=== PATIENT | male | born 1930 | race Caucasian/White ===

== ENCOUNTER → 2016-07-30 | Outpatient (CLI) | payer MEDICARE, OTHER ==
[~2016-07-30] MED LIST: ADVIN25/60 INH; ADVIN25050 INH; ASPI81TA28 PO; ATOR-22 PO; ATOR-24 PO; CALCTAB5 PO; METO25TA3 PO; MULT-506 PO; MULTCAP7 PO; VNTHFA/IN INH; ared PO
--- NOTE | 2016-07-30 14:24 | DIAGNOSTIC IMAGING REPORT ---
BONE SCAN WHOLE BODY CLINICAL HISTORY: Prostate cancer. COMPARISON STUDY: Bone scan May 23, 2013. TECHNIQUE: 26.1 mCi of technetium M MDP was injected IV at 10:25 AM on July 30, 2016. Whole body imaging was performed in the anterior and posterior projections 3 hours following an injection of radiotracer. FINDINGS: Expected soft tissue and renal uptake is present. Marked uptake adjacent to the right shoulder is unchanged and likely degenerative. Uptake within the right midfoot is slightly increased. This is likely degenerative. There is mild curvature of the thoracolumbar spine. There is mild to moderate multifocal uptake within the lower thoracic and lumbar spine. The degree of uptake is slightly increased since prior exam. No abnormal uptake is identified within the pelvis. IMPRESSION: 1. No convincing evidence for skeletal metastatic disease. 2. Mild to moderate multifocal uptake within the lower thoracic and lumbar spine which has slightly increased in degree since prior exam of May 23, 2013. However, a degenerative, postsurgical or traumatic etiology is favored. The appearance is not suggestive of metastatic disease. 3. Uptake adjacent to the right shoulder and right midfoot which is degenerative. Electronically signed by: Sreekanth Spear M.D. 07/30/2016 2:22 PM Dictated Date/Time: 07/30/2016 2:12 PM
== END | disposition home or self-care (01) ==
LOC: C.NUCL 10:08
PROVIDERS: ATTEND Urology
DX: C61 Malignant neoplasm of prostate (principal)

== ENCOUNTER → 2016-09-05 | Outpatient (CLI) | payer MEDICARE ==
[~2016-09-05] MED LIST changes: -ATOR-22 PO
--- NOTE | 2016-09-05 17:00 | DIAGNOSTIC IMAGING REPORT ---
CHEST 2 VIEWS ROUTINE CLINICAL HISTORY: R53.1 [id number] dyspnea COMPARISON STUDY: 09/27/2015 FINDINGS: Small parenchymal infiltrate left base with superimposed chronic atelectatic change. Lungs otherwise are clear. IMPRESSION: Small parenchymal infiltrate left base superimposed upon chronic atelectatic change Electronically signed by: Abraham Tyler M.D. 09/05/2016 4:58 PM Dictated Date/Time: 09/05/2016 4:58 PM
== END | disposition home or self-care (01) ==
LOC: C.RAD1850 16:47
PROVIDERS: ATTEND Internal Medicine Infectious Disease
DX: R53.1 Weakness (principal)

== ENCOUNTER → 2016-09-12 | Outpatient (CLI) | payer MEDICARE ==
[2016-09-12 17:33] LABS: BASO % 0.1 %; BASO ABS # 0.01 K/uL (0-0.2); COMPLETE YES; IG% 0.3 %; LYMPH % 13.6 %; LYMPH ABS # 1.17 K/uL (1.2-3.4); MEAN CELL VOLUME 88.1 fL (80-100); MEAN CORPUSCULAR HEMOGLOBIN 30.6 pg (25-34); MEAN CORPUSCULAR HGB CONC 34.7 g/dl (32-36); MEAN PLATELET VOLUME 9.1 fL (7.4-10.4); MONO % 12.7 %; NEUT % 72.3 %; PLATELET COUNT 338 K/uL (130-400); RED BLOOD COUNT 3.86 M/uL (4.7-6.1)
[2016-09-12 17:58] LABS: BLOOD UREA NITROGEN 18 mg/dl (7-18); BUN/CREATININE RATIO 18.2 (10-20); CALCIUM 8.9 mg/dl (8.5-10.1); CARBON DIOXIDE 28 mmol/L (21-32); CHLORIDE 93 mmol/L (98-107); GLUCOSE 92 mg/dl (70-99); POTASSIUM 3.7 mmol/L (3.5-5.1); SODIUM 130 mmol/L (136-145)
== END | disposition home or self-care (01) ==
LOC: C.LAB1850 16:24
PROVIDERS: ATTEND Internal Medicine Infectious Disease
DX: C61 Malignant neoplasm of prostate (principal); J18.1 Lobar pneumonia, unspecified organism

== ENCOUNTER 2017-02-14 11:21 | Emergency (ER) | payer MEDICARE ==
[~2017-02-14 11:21] MED LIST changes: -ADVIN25/60 INH; -MULTCAP7 PO
[2017-02-14 11:28] VITALS: TEMP 36.4
[2017-02-14] MEDS ORDERED: ADVIN25/60 INH (11:43)
[2017-02-14] MEDS ORDERED: MULTCAP7 PO (11:43)
[2017-02-14] MEDS ORDERED: OPTIRAY 320 IV PRN (12:15)
[2017-02-14 12:42] LABS: ISTAT CREATININE 0.9 mg/dl (0.6-1.3); ISTAT HEMOGLOBIN 12.2 g/dl (14.0-18.0); ISTAT IONIZED CALCIUM 1.15 mmol/l (1.12-1.32)
--- NOTE | 2017-02-14 13:24 | DIAGNOSTIC IMAGING REPORT ---
RIGHT SHOULDER MIN 2 VIEWS ROUTINE CLINICAL HISTORY: Right shoulder pain following fall. COMPARISON: None FINDINGS: Note is made of an acute displaced fracture of the sternal end of the right clavicle which extends to the sternoclavicular joint. There is also a mildly displaced acute fracture of the acromial end of the clavicle. Severe arthritis of the right shoulder is noted with elevation of the humeral head indicative of a chronic rotator cuff tear. There is no proximal right humeral fracture. There are fractures of the right first, third and fourth ribs. IMPRESSION: 1. Acute displaced fracture of the sternal end of the right clavicle and an additional mildly displaced acute fracture of the acromial aspect of the right clavicle. 2. Acute fractures of the right first, third and fourth ribs. 3. Severe osteoarthritis of the right shoulder with elevation of the humeral head which suggests a chronic rotator cuff tear. Electronically signed by: Sreekanth Spear M.D. 02/14/2017 1:22 PM Dictated Date/Time: 02/14/2017 1:17 PM
--- NOTE | 2017-02-14 13:25 | DIAGNOSTIC IMAGING REPORT ---
CT OF THE HEAD WITHOUT CONTRAST CLINICAL HISTORY: TRAUMA COMPARISON STUDY: No previous studies for comparison. CT DOSE: 1296.66 mGy.cm TECHNIQUE: Helical axial images of the head were obtained without IV contrast. Automated exposure control was utilized for the study. A dose lowering technique was utilized adhering to the principles of ALARA. FINDINGS: No acute intracranial hemorrhage, midline shift or mass effect is present. Ventricular system is unremarkable for age. The basilar cisterns are patent. There are no extra-axial collections. Moderate white matter hypodensity suggests small vessel disease. There is a small right scalp contusion. There is no calvarial fracture. IMPRESSION: 1. No acute intracranial findings. 2. Small right scalp contusion. No calvarial fracture. Electronically signed by: Sreekanth Spear M.D. 02/14/2017 1:24 PM Dictated Date/Time: 02/14/2017 1:22 PM
--- NOTE | 2017-02-14 13:32 | DIAGNOSTIC IMAGING REPORT ---
CT OF THE CERVICAL SPINE WITHOUT CONTRAST CLINICAL HISTORY: TRAUMA COMPARISON STUDY: No previous studies for comparison. TECHNIQUE: Helical axial images of the cervical spine were obtained without IV contrast. Sagittal and coronal reconstructions were viewed. A dose lowering technique was utilized adhering to the principles of ALARA. FINDINGS: Craniocervical junction is intact. There is slight reversal of the normal cervical lordosis. There is an acute mildly displaced fracture of the right transverse process of C7. There is severe multilevel disc space narrowing and osteophytosis of the cervical spine. There is moderate multilevel facet arthrosis. A fracture of the posterior right first rib is noted. IMPRESSION: 1. Acute mildly displaced fracture of the right transverse process of C7. 2. Acute minimally displaced fracture of the posterior right first rib. Electronically signed by: Sreekanth Spear M.D. 02/14/2017 1:30 PM Dictated Date/Time: 02/14/2017 1:24 PM
--- NOTE | 2017-02-14 13:42 | DIAGNOSTIC IMAGING REPORT ---
CT OF THE CHEST WITH IV CONTRAST CLINICAL HISTORY: Right chest trauma. COMPARISON STUDY: Chest CT August 25, 2013. TECHNIQUE: Following IV administration of 93 mL of Optiray-320, helical axial images of the chest were obtained. Sagittal and coronal reconstructions were viewed as well as maximal intensity projections on an independent 3-D workstation. A dose lowering technique was utilized adhering to the principles of ALARA. FINDINGS: There is no evidence of traumatic injury to the thoracic aorta. There are median sternotomy wires. There is extensive coronary artery calcification. The heart is mildly enlarged. Note is made of a comminuted, displaced fracture of the sternal aspect of the right clavicle with adjacent hemorrhage. There is also a mildly displaced acute fracture of the acromial aspect of the right clavicle. There are acute nondisplaced fractures of the posterior right first rib as well as the lateral right third, fourth and fifth ribs. There is no pneumothorax. There is no pleural effusion. Groundglass opacities within the lungs favor atelectasis. A small nodular density along the fissure within the right middle lobe is unchanged since prior exam of August 25, 2013. This is likely benign. There are old left-sided rib fractures. Several left renal cysts are incidentally noted. IMPRESSION: 1. Acute moderately displaced comminuted fracture of the sternal end of the right clavicle which extends to the sternoclavicular joint. Small adjacent hematoma which extends into the right pectoralis muscle. Acute mildly displaced fracture of the acromial aspect of the right clavicle. 2. Acute nondisplaced fractures of the right first, second, third, fourth and fifth ribs. No pneumothorax. 3. Groundglass opacities within the lungs which favor atelectasis. Electronically signed by: Sreekanth Spear M.D. 02/14/2017 1:41 PM Dictated Date/Time: 02/14/2017 1:31 PM
--- NOTE | 2017-02-14 15:25 | EMERGENCY ROOM VISIT NOTE ---
History First contact with patient: 11:38 Chief Complaint: FALL Stated Complaint: FALL History of Present Illness Patient is an 86-year-old white male who emergency department accompanied by his for evaluation of injuries that he sustained yesterday evening when he accidentally fell getting out of the back of his pickup truck. He reports he was standing in the bed of the truck throwing out bags of grass. He was coming down from the bed, when he lost his balance and fell landing primarily on the right side. He did strike his head, and his reports very brief loss of consciousness. There was bleeding from a right parietal scalp injury that was fairly brisk initially, but gradually was controlled with pressure. He laid on the ground for roughly 20 minutes before he was able to get up and get back into the house. His wanted to call the ambulance, but he declined. He got himself cleaned up. He used some acetaminophen for generalized aches and pains before going to bed. He noted primarily right shoulder, clavicle and some rib discomfort. He has a history of right shoulder problems, but states that he has not been able to move the right shoulder normally since the fall. He also complains of pain, swelling and bruising in the anterior right chest and clavicular region. His did apply antibiotic ointment to the scalp wound, but they did not wash it in the shower because they did not want the bleeding to return. He reports a fairly severe headache this morning that was alleviated with ibuprofen. He feels a little dizzy, lightheaded and off balance. He denies any posterior neck pain. He has some pain in his right chest with deep breathing. He denies any palpitations. No abdominal pain, nausea or vomiting. He denies any back or flank pain. His denies noticing any confusion, facial droop, slurring of speech or repetitive questioning. Review of Systems Review of systems as per HPI. All other systems reviewed were negative. 10 systems reviewed. Past Medical/Surgical History Medical Problems: (1) Asthma, Unspecified (2) Atrial Fibrillation (3) Coronary Atherosclerosis Of [place] Coronary Vessel (4) Emphysema, Unspecified (5) Hyperlipidemia Nec/Nos (6) Hypertension (7) Malignant Neoplasm Of Prostate (8) Mitral/Aortic Stenosis Surgical Problems: (1) Aortocoronary Bypass (2) H/O lumbosacral spine surgery (3) S/P appendectomy (4) S/P CABG x 3 (5) S/P cataract extraction (6) S/P tonsillectomy Electronic medical records are reviewed and summarized as above/below. See Problem List. Social History Smoking Status: Former Smoker Marital Status: Housing Status: lives with significant other Occupation Status: retired Current/Historical Medications Scheduled Aspirin (Aspirin Ec), 81 MG PO DAILY Atorvastatin (Lipitor), 1 TAB PO DAILY Fluticasone Prop/Salmeterol (Advair Diskus 250/50 60 Dose), 1 PUFF INH BID Metoprolol Succ (Toprol Xl) (Toprol-Xl), 25 MG PO DAILY Multiple Vitamins W/ Minerals (Eye Vitamins), 1 CAP PO DAILY Multivitamin (Multivitamin), 1 TAB PO DAILY Scheduled PRN Albuterol Hfa (Ventolin Hfa), 2-4 PUFFS INH Q6H PRN for Shortness of Breath Physical Exam Vital Signs Date Time Temp Pulse Resp B/P (MAP) Pulse Ox O2 Delivery O2 Flow Rate FiO2 02/14/17 15:17 60 18 133/67 95 Room Air 02/14/17 13:14 60 18 130/67 96 Room Air 02/14/17 11:28 36.4 67 20 138/63 95 Room Air Physical Exam GENERAL: Patient is a pleasant, mildly uncomfortable appearing 86-year-old white male who is awake and alert and laying semi-upright on the gurney in no acute stress. Vital signs are stable. HEENT: Head -right parietal scalp laceration, no surrounding ecchymosis or step- off deformity. Pupils are post surgically pinpoint, round and minimally reactive to light. Extraocular eye muscles are intact and sclera are anicteric. Ears - bilaterally patent canals with no evidence of hemotympanum. Nose - moist nasal mucosa without evidence of trauma or discharge. Mouth - moist buccal mucosa with no trauma to the teeth or signs of malocclusion. Neck: The neck is supple and there is no pain to palpation over the posterior cervical spine and no obvious step-offs or deformities. There is no JVD or tracheal deviation. Chest: Well-healed sternotomy surgical incision. Patient has marked ecchymosis and swelling noted in the right clavicular region extending to the sternum and in the upper right chest to the nipple line. The clavicle is deformed on inspection, tender to palpation, as is the upper chest wall. There is no obvious crepitus or paradoxical chest rise. Heart: Regular rate, and regular rhythm. Harsh systolic ejection murmur noted. Lungs: Breath sounds equal and clear to auscultation without wheezes, rales, or rhonchi heard. Abdomen: Soft, completely nontender, nondistended, with good bowel sounds. There is no sign of trauma such as contusions, abrasions or penetrations. There are no palpable pulsatile masses or hepatosplenomegaly. There is no guarding, rigidity, or rebound noted. Pelvis: Stable to rock and compression. Extremities: Skin tear noted to the posterior aspect of the right shoulder. Proximal humerus is tender to palpation. Passive internal and external rotation are full. Patient cannot actively flex or abduct the shoulder greater than 90. He has a skin tear noted to the left forearm. No other obvious trauma, deformities, contusions, or edema. There are easily palpable peripheral pulses. Neuro: The patient is awake and alert and easily able to follow commands. Muscle strength is 5 out of 5 in all 4 extremities. Otherwise, neuro exam is unremarkable. Back: The entire thoracic, lumbar, and sacral spine were palpated. No discomfort over the thoracic spine and lumbar spine. There are no obvious step- offs or deformities noted. There are no obvious signs of trauma such as contusions abrasions penetrations noted to the back. Medical Decision & Procedures ER Provider Diagnostic Interpretation: RIGHT SHOULDER MIN 2 VIEWS ROUTINE CLINICAL HISTORY: Right shoulder pain following fall. COMPARISON: None FINDINGS: Note is made of an acute displaced fracture of the sternal end of the right clavicle which extends to the sternoclavicular joint. There is also a mildly displaced acute fracture of the acromial end of the clavicle. Severe arthritis of the right shoulder is noted with elevation of the humeral head indicative of a chronic rotator cuff tear. There is no proximal right humeral fracture. There are fractures of the right first, third and fourth ribs. IMPRESSION: 1. Acute displaced fracture of the sternal end of the right clavicle and an additional mildly displaced acute fracture of the acromial aspect of the right clavicle. 2. Acute fractures of the right first, third and fourth ribs. 3. Severe osteoarthritis of the right shoulder with elevation of the humeral head which suggests a chronic rotator cuff tear. CT OF THE HEAD WITHOUT CONTRAST CLINICAL HISTORY: TRAUMA COMPARISON STUDY: No previous studies for comparison. CT DOSE: 1296.66 mGy.cm TECHNIQUE: Helical axial images of the head were obtained without IV contrast. Automated exposure control was utilized for the study. A dose lowering technique was utilized adhering to the principles of ALARA. FINDINGS: No acute intracranial hemorrhage, midline shift or mass effect is present. Ventricular system is unremarkable for age. The basilar cisterns are patent. There are no extra-axial collections. Moderate white matter hypodensity suggests small vessel disease. There is a small right scalp contusion. There is no calvarial fracture. IMPRESSION: 1. No acute intracranial findings. 2. Small right scalp contusion. No calvarial fracture. CT OF THE CHEST WITH IV CONTRAST CLINICAL HISTORY: Right chest trauma. COMPARISON STUDY: Chest CT August 25, 2013. TECHNIQUE: Following IV administration of 93 mL of Optiray-320, helical axial images of the chest were obtained. Sagittal and coronal reconstructions were viewed as well as maximal intensity projections on an independent 3-D workstation. A dose lowering technique was utilized adhering to the principles of ALARA. FINDINGS: There is no evidence of traumatic injury to the thoracic aorta. There are median sternotomy wires. There is extensive coronary artery calcification. The heart is mildly enlarged. Note is made of a comminuted, displaced fracture of the sternal aspect of the right clavicle with adjacent hemorrhage. There is also a mildly displaced acute fracture of the acromial aspect of the right clavicle. There are acute nondisplaced fractures of the posterior right first rib as well as the lateral right third, fourth and fifth ribs. There is no pneumothorax. There is no pleural effusion. Groundglass opacities within the lungs favor atelectasis. A small nodular density along the fissure within the right middle lobe is unchanged since prior exam of August 25, 2013. This is likely benign. There are old left-sided rib fractures. Several left renal cysts are incidentally noted. IMPRESSION: 1. Acute moderately displaced comminuted fracture of the sternal end of the right clavicle which extends to the sternoclavicular joint. Small adjacent hematoma which extends into the right pectoralis muscle. Acute mildly displaced fracture of the acromial aspect of the right clavicle. 2. Acute nondisplaced fractures of the right first, second, third, fourth and fifth ribs. No pneumothorax. 3. Groundglass opacities within the lungs which favor atelectasis. CT OF THE CERVICAL SPINE WITHOUT CONTRAST CLINICAL HISTORY: TRAUMA COMPARISON STUDY: No previous studies for comparison. TECHNIQUE: Helical axial images of the cervical spine were obtained without IV contrast. Sagittal and coronal reconstructions were viewed. A dose lowering technique was utilized adhering to the principles of ALARA. FINDINGS: Craniocervical junction is intact. There is slight reversal of the normal cervical lordosis. There is an acute mildly displaced fracture of the right transverse process of C7. There is severe multilevel disc space narrowing and osteophytosis of the cervical spine. There is moderate multilevel facet arthrosis. A fracture of the posterior right first rib is noted. IMPRESSION: 1. Acute mildly displaced fracture of the right transverse process of C7. 2. Acute minimally displaced fracture of the posterior right first rib. Laboratory Results Test 02/14/17 12:25 Bedside Hemoglobin 12.2 g/dl (14.0-18.0) Bedside Hematocrit 36 % (42-52) Bedside Sodium 130 mEq/L (135-144) Bedside Potassium 4.0 mEq/L (3.3-5.0) Bedside Chloride 94 mEq/L (101-112) Bedside Total CO2 25 mEq/l (24-31) Anion Gap 16.0 mmol/L (16-25) Bedside Blood Urea Nitrogen 18 mg/dl (7-18) Bedside Creatinine 0.9 mg/dl (0.6-1.3) Bedside Glucose (other) 111 mg/dl (70-99) Bedside Ionized Calcium (Vladimir) 1.15 mmol/l (1.12-1.32) ED Course The patient was seen and assessed as above. He declined analgesia. IV lock was initiated and i-STAT labs were drawn. H&H 12.2 and 36, electrolytes were without significant abnormality and renal function was normal. Right shoulder x -rays, CT scan of the head and cervical spine without contrast and trauma CT of the chest were performed. Findings are as noted above. History, presentation and ED workup were reviewed with attending physician who also independently evaluated the patient. All laboratory and diagnostic imaging studies were reviewed with the patient and his at length. Given the extensive right-sided chest trauma, it was recommended to the patient that he be transferred to a trauma center for further care and monitoring. The family has requested [facility]. Trauma surgery services were consulted and the patient was reviewed with Dr. Leigh who accepted the patient in transfer. Transfer arrangements were made, consent and transfer orders were completed. The patient remained hemodynamically stable while in the emergency department, and continued to decline any analgesia. Medical Decision Patient is an 86-year-old white male who sustained a mechanical fall from the bed of his truck yesterday afternoon. His history is not consistent with seizure, arrhythmia or syncope. He sustained right sided chest and upper extremity trauma. Differential diagnoses entertained includes clavicle fracture , rib fracture, proximal humerus fracture, shoulder dislocation, pneumothorax, pulmonary contusion, hemothorax, acute intracranial bleed, skull fracture, C- spine injury, among others. Head Trauma GCS Score: 15 Medication Reconcilliation Current Medication List: was personally reviewed by vt Blood Pressure Screening Patient's blood pressure: Normal blood pressure Blood pressure disposition: Did not require urgent referral Impression Primary Impression: Multiple rib fractures involving first rib Additional Impressions: Multiple rib fractures involving four or more ribs Fracture of clavicle Cervical transverse process fracture Departure Information Dispostion [place] [place] [facility] Referrals Bhaskar Gaffney M.D. (PCP) Patient Instructions My [facility] Problem Qualifiers Additional Impressions: Fracture of clavicle Encounter type: initial encounter Clavicle location: unspecified part of clavicle Fracture type: closed Fracture alignment: displaced Laterality: right Qualified Codes: S42.001A - Fracture of unspecified part of right clavicle, initial encounter for closed fracture Cervical transverse process fracture Encounter type: initial encounter Qualified Codes: S12.9XXA - Fracture of neck, unspecified, initial encounter
[2017-02-14 17:16] VITALS: BP 157/90; PULSE 66; O2SAT 95
== END 2017-02-14 17:17 | disposition short-term general hospital (02) ==
LOC: C.EDB 11:22 → C.EDD 17:17
DX: S22.41XA Multiple fractures of ribs, right side, initial encounter for closed fracture (principal); S42.011A Anterior displaced fracture of sternal end of right clavicle, initial encounter for closed fracture; S12.690A Other displaced fracture of seventh cervical vertebra, initial encounter for closed fracture; W17.89XA Other fall from one level to another, initial encounter; Y93.89 Activity, other specified; S01.01XA Laceration without foreign body of scalp, initial encounter; J45.909 Unspecified asthma, uncomplicated; I48.91 Unspecified atrial fibrillation; I25.10 Atherosclerotic heart disease of native coronary artery without angina pectoris; J43.9 Emphysema, unspecified; E78.5 Hyperlipidemia, unspecified; I10 Essential (primary) hypertension; Z85.46 Personal history of malignant neoplasm of prostate; Z95.1 Presence of aortocoronary bypass graft; Z98.49 Cataract extraction status, unspecified eye; Z87.891 Personal history of nicotine dependence; Z79.82 Long term (current) use of aspirin; Z79.899 Other long term (current) drug therapy

== ENCOUNTER → 2017-05-05 | Outpatient (CLI) | payer MEDICARE ==
[~2017-05-05] MED LIST changes: +ADVIN25/60 INH; -ADVIN25050 INH; -CALCTAB5 PO; +MULTCAP7 PO; -ared PO
== END | disposition home or self-care (01) ==
LOC: C.LAB 14:29
PROVIDERS: ATTEND Urology
DX: C61 Malignant neoplasm of prostate (principal)

== ENCOUNTER → 2017-06-03 | Outpatient (CLI) | payer MEDICARE ==
[2017-06-03 12:35] LABS: BLOOD UREA NITROGEN 21 mg/dl (7-18); BUN/CREATININE RATIO 17.6 (10-20); CREATININE 1.19 mg/dl (0.60-1.40)
== END | disposition home or self-care (01) ==
LOC: C.LAB1850 10:51
PROVIDERS: ATTEND Urology
DX: C61 Malignant neoplasm of prostate (principal)

== ENCOUNTER → 2017-06-10 | Outpatient (CLI) | payer MEDICARE | END | disposition home or self-care (01) | LOC: C.MRIBC 09:39 | PROVIDERS: ATTEND Urology | DX: C61 Malignant neoplasm of prostate (principal) ==

== ENCOUNTER → 2017-07-30 | Outpatient (CLI) | payer MEDICARE ==
--- NOTE | 2017-07-30 14:28 | DIAGNOSTIC IMAGING REPORT ---
BONE SCAN WHOLE BODY CLINICAL HISTORY: Prostate cancer. COMPARISON STUDY: Whole body bone scan July 30, [address] February 14, 2017. TECHNIQUE: 27.1 mCi of technetium 99M MDP was injected IV at 10:30 AM on July 30, 2017. 3 hours following injection, whole body imaging was performed in the anterior and posterior projections. FINDINGS: Expected soft tissue and renal uptake is present. Marked uptake within the right shoulder is likely degenerative. Uptake within the right midfoot has slightly increased. This is likely degenerative. There has been interval development of marked uptake within the right clavicle and anterior right first rib which corresponds to fractures shown on CT of February 14, 2017. Therefore, these findings are posttraumatic. Multifocal uptake within the thoracic and lumbar spines is likely degenerative. This is similar to prior exam. IMPRESSION: 1. No evidence of skeletal metastatic disease. 2. Interval development of marked radiotracer uptake within the right clavicle and right first rib which corresponds to fractures shown on CT of February 14, 2017. Therefore, these findings are posttraumatic. 3. Right shoulder, right foot and thoracolumbar spine radiotracer uptake which is likely degenerative. Electronically signed by: Sreekanth Spear M.D. 07/30/2017 2:27 PM Dictated Date/Time: 07/30/2017 2:22 PM
== END | disposition home or self-care (01) ==
LOC: C.NUCL 10:13
PROVIDERS: ATTEND Urology
DX: C61 Malignant neoplasm of prostate (principal); R93.7 Abnormal findings on diagnostic imaging of other parts of musculoskeletal system

== ENCOUNTER 2017-08-07 22:45 | Emergency (ER) | payer MEDICARE ==
[~2017-08-07] VITALS: Ht 172.7 cm; Wt 70.0 kg
[2017-08-07 22:48] VITALS: Ht 172.7 cm; Wt 70.0 kg
--- NOTE | 2017-08-07 23:45 | EMERGENCY ROOM VISIT NOTE ---
History Report prepared by Blas: Naif Silva Under the Supervision of: Dr. Bri Jacobson D.O. First contact with patient: 22:58 Chief Complaint: FLU LIKE SX Stated Complaint: COUGH,WEAK,PRONE TO PNEUMONIA History of Present Illness The patient is an 87 year old male who presents to the Emergency Room with complaints of worsening flu-like symptoms that began this afternoon. Patient has associated symptoms of a cough, vomiting, weakness, and fevers. He denies any urinary symptoms, abdominal pain, body aches, or changes in bowel movements. Patient is present with his . states that the patient's highest fever was 103. She states that the patient's fever was lower prior to arrival after the patient took aspirin. Pertinent past medical history includes pneumonia. Patient states he had an influenza shot this year. He denies having a pneumonia shot. Source of History: patient Onset: this afternoon Timing: worsening Associated Symptoms: + fevers, + cough, + vomiting, + weakness, No abdominal pain, No urinary symptoms Note: Patient denies changes in bowel movements. Review of Systems See HPI for pertinent positives & negatives. A total of 10 systems reviewed and were otherwise negative. 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 Social History Smoking Status: Never Smoker Marital Status: Housing Status: lives with significant other Occupation Status: retired Current/Historical Medications Scheduled Aspirin (Aspirin Ec), 81 MG PO DAILY Atorvastatin (Lipitor), 1 TAB PO DAILY Fluticasone Prop/Salmeterol (Advair Diskus 250/50 60 Dose), 1 PUFF INH BID Levofloxacin (Levaquin), 1 TAB PO DAILY Metoprolol Succ (Toprol Xl) (Toprol-Xl), 25 MG PO DAILY Multiple Vitamins W/ Minerals (Eye Vitamins), 1 CAP PO DAILY Multivitamin (Multivitamin), 1 TAB PO DAILY Scheduled PRN Albuterol Hfa (Ventolin Hfa), 2-4 PUFFS INH Q6H PRN for Shortness of Breath Allergies Coded Allergies: No Known Allergies (Verified , 08/08/17) Physical Exam Vital Signs Date Time Temp Pulse Resp B/P (MAP) Pulse Ox O2 Delivery O2 Flow Rate FiO2 08/08/17 03:57 86 18 123/63 98 08/08/17 02:11 91 18 138/72 98 Room Air 08/08/17 00:25 95 Room Air 08/08/17 00:25 72 18 138/72 98 Room Air 08/08/17 00:00 69 08/07/17 22:48 37.1 72 18 99/61 93 Room Air Physical Exam HEENT: Head - normocephalic and atraumatic Pupils are equal, round, and reactive to light. Extraocular eye muscles are intact, and sclera are anicteric. Nose - moist nasal mucosa without discharge. Mouth - moist buccal mucosa. Oropharynx is nonerythematous and there is no tonsillar exudate or edema noted. Neck: Supple; no JVD, nuchal rigidity, cervical lymphadenopathy. Heart: Regular rate and rhythm. There is a normal S1 and S2 with no murmurs, clicks, or gallops appreciated. Lungs: no wheezes, rales, or rhonchi. Diminished breath sounds in left lung Abdomen: Soft, completely nontender, nondistended, with good bowel sounds. There are no palpable pulsatile masses or hepatosplenomegaly. There is no guarding, rigidity, or rebound noted. Extremities: No evidence of cyanosis, clubbing, or edema. There are easily palpable peripheral pulses. Skin: warm and dry with good turgor and no rashes. Medical Decision & Procedures ER Provider Diagnostic Interpretation: Radiology results as stated below per my review and the radiologist's interpretation: Chest X-Ray: Early right lower lobe infiltrate, no cardiomegaly Laboratory Results 08/07/17 00:00 Red Blood Count 3.89, Mean Corpuscular Volume 91.0, Mean Corpuscular Hemoglobin 30.8, Mean Corpuscular Hemoglobin Concent 33.9, Mean Platelet Volume 9.5, Neutrophils (%) (Auto) 87.3, Lymphocytes (%) (Auto) 6.9, Monocytes (%) (Auto) 5.5, Eosinophils (%) (Auto) 0.0, Basophils (%) (Auto) 0.1, Neutrophils # (Auto) 7.94, Lymphocytes # (Auto) 0.63, Monocytes # (Auto) 0.50, Eosinophils # (Auto) 0.00, Basophils # (Auto) 0.01 08/07/17 00:00 Test 08/07/17 00:00 08/08/17 00:00 08/08/17 00:10 08/08/17 00:20 White Blood Count 9.10 K/uL (4.8-10.8) Red Blood Count 3.89 M/uL (4.7-6.1) Hemoglobin 12.0 g/dL (14.0-18.0) Hematocrit 35.4 % (42-52) Mean Corpuscular Volume 91.0 fL (80-100) Mean Corpuscular Hemoglobin 30.8 pg (25-34) Mean Corpuscular Hemoglobin Concent 33.9 g/dl (32-36) Platelet Count 311 K/uL (130-400) Mean Platelet Volume 9.5 fL (7.4-10.4) Neutrophils (%) (Auto) 87.3 % Lymphocytes (%) (Auto) 6.9 % Monocytes (%) (Auto) 5.5 % Eosinophils (%) (Auto) 0.0 % Basophils (%) (Auto) 0.1 % Neutrophils # (Auto) 7.94 K/uL (1.4-6.5) Lymphocytes # (Auto) 0.63 K/uL (1.2-3.4) Monocytes # (Auto) 0.50 K/uL (0.11-0.59) Eosinophils # (Auto) 0.00 K/uL (0-0.5) Basophils # (Auto) 0.01 K/uL (0-0.2) RDW Standard Deviation 43.8 fL (36.4-46.3) RDW Coefficient of Variation 13.2 % (11.5-14.5) Immature Granulocyte % (Auto) 0.2 % Immature Granulocyte # (Auto) 0.02 K/uL (0.00-0.02) Prothrombin Time 11.4 SECONDS (9.0-12.0) Prothromb Time International Ratio 1.1 (0.9-1.1) Activated Partial Thromboplast Time 29.2 SECONDS (21.0-31.0) Partial Thromboplastin Ratio 1.1 Anion Gap 5.0 mmol/L (3-11) Est Creatinine Clear Calc Drug Dose 43.3 ml/min Estimated GFR () 66.2 Estimated GFR (Non- 57.1 BUN/Creatinine Ratio 15.3 (10-20) Calcium Level 8.8 mg/dl (8.5-10.1) Total Bilirubin 0.8 mg/dl (0.2-1) Aspartate Amino Transf (AST/SGOT) 24 U/L (15-37) Alanine Aminotransferase (ALT/SGPT) 20 U/L (12-78) Alkaline Phosphatase 82 U/L (45-117) Total Protein 7.1 gm/dl (6.4-8.2) Albumin 3.1 gm/dl (3.4-5.0) Globulin 4.0 gm/dl (2.5-4.0) Albumin/Globulin Ratio 0.8 (0.9-2) Influenza Type A Antigen Neg for Influ A (NEG) Influenza Type B Antigen Neg for Influ B (NEG) Bedside Lactic Acid Venous 1.07 mmol/L (0.90-1.70) Urine Color DK YELLOW Urine Appearance CLEAR (CLEAR) Urine pH 7.0 (4.5-7.5) Urine Specific [place] 1.022 (1.000-1.030) Urine Protein NEG (NEG) Urine Glucose (UA) NEG (NEG) Urine Ketones TRACE (NEG) Urine Occult Blood NEG (NEG) Urine Nitrite NEG (NEG) Urine Bilirubin NEG (NEG) Urine Urobilinogen NEG (NEG) Urine Leukocyte Esterase TRACE (NEG) Urine WBC (Auto) 1-5 /hpf (0-5) Urine RBC (Auto) 0-4 /hpf (0-4) Urine Hyaline Casts (Auto) 1-5 /lpf (0-5) Urine Epithelial Cells (Auto) 5-10 /lpf (0-5) Urine Bacteria (Auto) NEG (NEG) Laboratory results per my review. Medications Administered Medications (Trade) Dose Ordered Sig/Mike Route Start Time Stop Time Status Last Admin Dose Admin Levofloxacin (Levaquin Tab) 500 mg NOW STAT PO 08/08/17 02:46 08/08/17 02:47 DC 08/08/17 03:16 500 MG Procedure Levofloxacin 500mg PO ECG Indication: weakness Rate (beats per minute): 71 Rhythm: normal sinus Findings: no acute ischemic change, no ectopy Change: Patient's electrocardiogram was interpreted by me. ED Course 2320: The patient was evaluated in room C10. A complete history and physical examination were performed. Nursing notes and previous electronic medical records were reviewed. IV lock was established and labs were drawn as above. A septic protocol was performed. A twelve-lead EKG was obtained. Had a chest x -ray as described above. 0207: I reassessed the patient who is resting comfortably. 0246: Levofloxacin 500mg PO 0250: Upon reevaluation, the patient is resting comfortably. I discussed findings and results with him. He verbalized agreement of the treatment plan. He was discharged home. Medical Decision The patient is a 87 year old male who presents to the ED with worsening flu- like symptoms. Differential diagnosis includes pneumonia, influenza, bronchitis , and sepsis. Lab results show no leukocytosis, hemoglobin = 12, lactic acid = 1.0, normal renal function and glucose, normal Coag, urinalysis had trace ketones and trace leukocyte esterase, negative flu. This is an 87-year-old male patient presents to the emergency department with intermittent fever and cough. The patient has a history of previous episodes of pneumonia which were associated with vomiting and weakness. X-ray was concerning for a pneumonia. However, the patient was hemodynamically stable with no significant leukocytosis. The patient requested Levaquin as he states that this is the only antibiotic that he can take. The patient was instructed to take this daily and follow-up with his PCP if symptoms persist. Medication Reconcilliation Current Medication List: was personally reviewed by me Blood Pressure Screening Patient's blood pressure: Normal blood pressure Blood pressure disposition: Did not require urgent referral Impression Primary Impression: Right lower lobe pneumonia Scribe Attestation The scribe's documentation has been prepared under my direction and personally reviewed by me in its entirety. I confirm that the note above accurately reflects all work, treatment, procedures, and medical decision making performed by me. Departure Information Dispostion Home / Self-Care Prescriptions Levofloxacin (LEVAQUIN) 500 Mg Tab 1 TAB PO DAILY for 10 Days, #10 TAB Prov: Bri Jacobson D.O. 08/08/17 Referrals Bhaskar Gaffney M.D. (PCP) Forms HOME CARE DOCUMENTATION FORM, IMPORTANT VISIT INFORMATION Patient Instructions My [facility], Pneumonia Dc Additional Instructions Rest take Levaquin daily for next 10 days Return to the ER for shortness of breath or worsening symptoms. Follow up with PCP if fever continues Problem Qualifiers Primary Impression: Right lower lobe pneumonia Pneumonia type: due to unspecified organism Qualified Codes: J18.1 - Lobar pneumonia, unspecified organism
[2017-08-08 00:25] VITALS: O2SAT 95
[2017-08-08 00:28] LABS: BASO % 0.1 %; BASO ABS # 0.01 K/uL (0-0.2); HEMATOCRIT 35.4 % (42-52); IG# 0.02 K/uL (0.00-0.02); LYMPH % 6.9 %; LYMPH ABS # 0.63 K/uL (1.2-3.4); MEAN CORPUSCULAR HEMOGLOBIN 30.8 pg (25-34); MEAN CORPUSCULAR HGB CONC 33.9 g/dl (32-36); MEAN PLATELET VOLUME 9.5 fL (7.4-10.4); MONO % 5.5 %; NEUT % 87.3 %; NEUT ABS # 7.94 K/uL (1.4-6.5); PLATELET COUNT 311 K/uL (130-400); RED CELL DISTRIBUTION WIDTH CV 13.2 % (11.5-14.5); RED CELL DISTRIBUTION WIDTH SD 43.8 fL (36.4-46.3)
[2017-08-08 00:37] LABS: INR 1.1 (0.9-1.1); PTT PATIENT 29.2 SECONDS (21.0-31.0)
[2017-08-08 00:46] LABS: ALBUMIN 3.1 gm/dl (3.4-5.0); CALCIUM 8.8 mg/dl (8.5-10.1); CREATININE 1.14 mg/dl (0.60-1.40); POTASSIUM 3.6 mmol/L (3.5-5.1)
[2017-08-08 00:49] LABS: TOTAL PROTEIN 7.1 gm/dl (6.4-8.2)
[2017-08-08 00:59] LABS: INFLUENZA B ANTIGEN Neg for Influ B (NEG)
[2017-08-08] MEDS ORDERED: LEVOFLOXACIN 500 MG TAB PO STA (02:46)
[2017-08-08] MEDS ORDERED: LEVO1TAB34 PO (03:44)
[2017-08-08 03:57] VITALS: BP 123/63; PULSE 86; O2SAT 98
--- NOTE | 2017-08-08 08:46 | DIAGNOSTIC IMAGING REPORT ---
TWO VIEW CHEST CLINICAL HISTORY: Pneumonia. FINDINGS: PA and lateral chest radiographs are compared to study dated 09/05/2016 and correlated with chest CT dated 02/14/2017. The patient is status post midline sternotomy. The heart is top normal in size and there is atherosclerotic calcification of the thoracic aorta. Emphysema and chronic interstitial thickening is similar to previous. Linear airspace opacities of the left lung base likely reflect scarring/atelectasis. There is no airspace consolidation typical for pneumonia. No pleural effusion or pneumothorax is seen. The skeletal structures are osteopenic. Degenerative changes are present in the thoracic spine and shoulders. IMPRESSION: Emphysema and chronic parenchymal changes as above. No acute cardiopulmonary abnormality is identified. Electronically signed by: Lisandro Palomino M.D. 08/08/2017 8:44 AM Dictated Date/Time: 08/08/2017 8:43 AM
== END 2017-08-08 03:59 | disposition home or self-care (01) ==
LOC: C.EDB 22:47 → C.EDC 08-08 03:59
DX: J18.9 Pneumonia, unspecified organism (principal); R82.4 Acetonuria; R82.99 Other abnormal findings in urine; J45.909 Unspecified asthma, uncomplicated; I10 Essential (primary) hypertension; E78.5 Hyperlipidemia, unspecified; Z79.82 Long term (current) use of aspirin; Z87.09 Personal history of other diseases of the respiratory system

== ENCOUNTER → 2017-09-24 | Outpatient (CLI) | payer MEDICARE ==
[2017-09-24 12:27] LABS: BASO % 0.4 %; BASO ABS # 0.03 K/uL (0-0.2); EOS % 0.7 %; EOS ABS # 0.06 K/uL (0-0.5); HEMATOCRIT 37.1 % (42-52); HEMOGLOBIN 12.4 g/dL (14.0-18.0); IG# 0.03 K/uL (0.00-0.02); LYMPH % 14.1 %; LYMPH ABS # 1.14 K/uL (1.2-3.4); MEAN CELL VOLUME 89.8 fL (80-100); MEAN CORPUSCULAR HGB CONC 33.4 g/dl (32-36); MEAN PLATELET VOLUME 9.5 fL (7.4-10.4); MONO % 8.5 %; MONO ABS # 0.69 K/uL (0.11-0.59); NEUT % 75.9 %; NEUT ABS # 6.14 K/uL (1.4-6.5); PLATELET COUNT 478 K/uL (130-400); RED CELL DISTRIBUTION WIDTH CV 13.2 % (11.5-14.5); RED CELL DISTRIBUTION WIDTH SD 43.5 fL (36.4-46.3); WHITE BLOOD COUNT 8.09 K/uL (4.8-10.8)
[2017-09-24 13:21] LABS: ALBUMIN 3.4 gm/dl (3.4-5.0); ALT/SGPT 24 U/L (12-78); BLOOD UREA NITROGEN 24 mg/dl (7-18); CALCIUM 9.5 mg/dl (8.5-10.1); CARBON DIOXIDE 27 mmol/L (21-32); CHOLESTEROL 136 mg/dl (0-200); CREATININE 1.36 mg/dl (0.60-1.40); GLUCOSE 88 mg/dl (70-99); POTASSIUM 4.2 mmol/L (3.5-5.1); SODIUM 134 mmol/L (136-145)
[2017-09-24 13:26] LABS: ALKALINE PHOSPHATASE 94 U/L (45-117); AST/SGOT 29 U/L (15-37); LDL CHOLESTEROL CALCULATED 75 mg/dl; TOTAL PROTEIN 8.2 gm/dl (6.4-8.2)
== END | disposition home or self-care (01) ==
LOC: C.LABBC 10:05
PROVIDERS: ATTEND Urology
DX: C61 Malignant neoplasm of prostate (principal); E78.5 Hyperlipidemia, unspecified

== ENCOUNTER → 2018-03-09 | Outpatient (CLI) | payer MEDICARE ==
[2018-03-09 16:52] LABS: ALBUMIN 3.5 gm/dl (3.4-5.0); TOTAL PROTEIN 7.4 gm/dl (6.4-8.2)
== END | disposition home or self-care (01) ==
LOC: C.LAB1850 15:20
PROVIDERS: ATTEND Urology
DX: C61 Malignant neoplasm of prostate (principal)

== ENCOUNTER 2018-10-30 12:58 | Inpatient (IN) ==
[2018-10-30] MEDS ORDERED: SODIUM CHLORIDE 0.9% 1000ML 1,000 ML IV SCH (13:45)
[2018-10-30 14:04] LABS: Basophils # (auto) 0.01 K/uL (0-0.2); Basophils % (auto) 0.3 %; Hematocrit (blood only) 33.4 % (42-52); Hemoglobin 11.2 g/dL (14.0-18.0); Immature Granulocytes # (auto) 0.02 K/uL (0.00-0.02); Immature Granulocytes % (auto) 0.5 %; Lymphocytes # (auto) 0.34 K/uL (1.2-3.4); Lymphocytes % (auto) 8.9 %; Mean Corpuscular Hgb Conc 33.5 g/dL (32-36); Mean Corpuscular Volume 92.5 fL (80-100); Mean Platelet Volume 9.6 fL (7.4-10.4); Monocytes # (auto) 0.21 K/uL (0.11-0.59); Monocytes % (auto) 5.5 %; Neutrophils # (auto) 3.23 K/uL (1.4-6.5); Neutrophils % (auto) 84.8 %; Platelet Count 198 K/uL (130-400); RDW Coefficient of Variation 14.1 % (11.5-14.5); RDW Standard Deviation 47.8 fL (36.4-46.3); Red Blood Count 3.61 M/uL (4.7-6.1); White Blood Count 3.81 K/uL (4.8-10.8)
[2018-10-30 14:15] LABS: INR 1.1 (0.9-1.1); Prothrombin Time 11.4 Seconds (9.0-12.0)
[2018-10-30 14:23] LABS: Calcium 8.8 mg/dl (8.5-10.1); Creatinine Clr Calc Pharmacy 34.5 ml/min; Est GFR (African American) 52.2; Magnesium 2.1 mg/dl (1.8-2.4); Potassium 3.6 mmol/L (3.5-5.1)
--- NOTE | 2018-10-30 14:31 | CT Scan Report ---
CT SCAN OF THE BRAIN WITHOUT IV CONTRAST CLINICAL HISTORY: Change in mental status. COMPARISON STUDY: CT of the brain dated 02/14/2017. TECHNIQUE: Unenhanced axial CT scan of the brain is performed from the vertex to the skull base. A do se lowering technique was utilized adhering to the principles of ALARA. CT DOSE: 537.48 mGy.cm FINDINGS: Brain parenchyma: There are age-related involutional changes noting moderate to advanced confluent s ubcortical and periventricular microangiopathic change. There is no hemorrhage, mass effect, or evide nce of acute territorial ischemia by CT criteria. Muñoz-white matter differentiation is preserved. No extra-axial fluid collection is seen. Ventricles, sulci, cisterns: Prominent secondary to involutional change. Intracranial vasculature: There is atherosclerotic calcification of the cavernous carotid and vertebr al arteries. Calvarium: Unremarkable. Sinuses and mastoids: Moderate mucosal thickening is noted within the frontal and ethmoid sinuses. Th e mastoid air cells are well pneumatized. Orbits: The bony orbits are grossly intact. There are bilateral ocular lens implants. IMPRESSION: 1. Senescent changes as above with no hemorrhage, mass effect, or evidence of acute territorial ische jacob by CT criteria. 2. Paranasal sinus disease as above. Electronically signed by: Lisandro Palomino M.D. 10/30/2018 2:30 PM
--- NOTE | 2018-10-30 14:38 | XRay Report ---
TWO VIEW CHEST CLINICAL HISTORY: Dyspnea. FINDINGS: PA and lateral chest radiographs are compared to study dated 09/15/2018 and correlated with chest CT dated 02/14/2017. The patient is status post midline sternotomy and there is evidence of prev ious cardiac valve surgery. The heart is mildly enlarged and there is atherosclerotic calcification o f the thoracic aorta. The pulmonary vasculature is noncongested. Enlargement of the central pulmonary arteries suggests pulmonary artery hypertension. Emphysema and chronic interstitial thickening are s imilar to previous. There is chronic elevation of the left hemidiaphragm with bibasilar scarring/atel ectasis. There is no evidence of superimposed airspace consolidation or pleural effusion. There is no pneumothorax. The skeletal structures are osteopenic. Degenerative change is noted in the shoulders and thoracic spine. The bony thorax appears intact. IMPRESSION: Cardiomegaly and emphysema with no acute cardiopulmonary abnormality. Electronically signed by: Lisandro Palomino M.D. 10/30/2018 2:37 PM
[2018-10-30 14:41] LABS: Albumin Globulin Ratio 0.8 (0.9-2); Bilirubin,Total 0.5 mg/dl (0.2-1); Globulin 3.9 gm/dl (2.5-4.0); Total Protein 6.9 gm/dl (6.4-8.2); Troponin I 0.118 ng/ml (0-0.045)
[2018-10-30 15:21] LABS: Influenza A virus by PCR Neg for Influ A (Neg); Influenza B virus by PCR Neg for Influ B (Neg)
[2018-10-30] MEDS ORDERED: IOVERSOL 100ml IV PRN (16:38)
--- NOTE | 2018-10-30 17:02 | CT Scan Report ---
CT SCAN OF THE CHEST, ABDOMEN, AND PELVIS WITH IV CONTRAST CLINICAL HISTORY: Cough. Nausea and vomiting. COMPARISON STUDY: Chest CT dated 02/14/2017. Chest x-ray dated 10/30/2018. Abdominal CT dated 3. Nuclear bone scan dated 07/30/2016. TECHNIQUE: Following the IV administration of 94 of Optiray 320, CT scan of the chest, abdomen, and p stefani was performed from the thoracic inlet to the proximal femora. Images are reviewed in the axial, sagittal, and coronal planes. IV contrast was administered without complication. A dose lowering t echnique was utilized adhering to the principles of ALARA. CT DOSE: 489.63 mGy.cm FINDINGS: CHEST: Thyroid: Imaged portions of the thyroid gland are normal in size and attenuation. Thoracic aorta: There is atherosclerotic calcification of the thoracic aorta, which is normal in mohan clark and demonstrates standard 3-vessel arch anatomy. No dissection is seen. Pulmonary vasculature: The main pulmonary arteries are mildly dilated suggesting pulmonary artery hyp ertension. There are no filling defects identified in the central pulmonary vessels to indicate pulmo nary embolus. Note that this examination was not protocoled for evaluation of the pulmonary arteries. Heart: The patient is status post midline sternotomy. Postoperative change is noted at the aortic shiv ve. The heart is enlarged and without pericardial effusion. The coronary arteries are densely calcifi ed. Lungs and pleural spaces: Emphysematous change is again noted. No airspace consolidation or pleural e ffusion is identified. There is chronic elevation of left hemidiaphragm with bibasilar scarring/atele ctasis. A 4 mm pleural-based nodule in the left lower lobe along the major fissure seen on image #145 is unchanged from 2017 and of doubtful significance. The trachea and central airways are clear. Mediastinum: There are numerous subcentimeter mediastinal lymph nodes. These are not pathologically e nlarged by size criteria. Yamini: Prominent hilar nodes measure up to 10 mm in short axis. Axillae: There is no axillary lymphadenopathy. Soft tissues: Gynecomastia is noted. A 16 mm sebaceous cyst is present in the right upper back on dean ge #[id number]. Bony thorax: The skeletal structures are osteopenic. There are numerous healed right-sided rib fractu res. There is chronic posttraumatic deformity of the right clavicle. Degenerative change and scoliosi s are noted in the thoracic spine. Advanced arthritic change is seen in the shoulders. Numerous joint bodies and bursal fluid are identified. No lytic or blastic lesions are identified. ABDOMEN AND PELVIS: Liver: The contrast-enhanced liver is normal in size, contour, and attenuation. There is no intrahepa tic or ductal dilatation. The hepatic veins and portal veins are patent. Gallbladder: Unremarkable. Spleen: Normal in size and attenuation. Pancreas: Mildly atrophic and grossly unremarkable. Adrenal glands: Unremarkable. Kidneys: The contrast enhanced kidneys demonstrate cortical atrophy and are without hydronephrosis. T he kidneys enhance symmetrically. There are 2 left renal cyst which measure up to 3.4 cm. Abdominal vasculature: The abdominal aorta is normal in course and caliber noting advanced atheroscle rotic calcification. Bowel: Fundoplication change is questioned at the gastric fundus. There is rectosigmoid fecal retenti on. No bowel obstruction is seen. Mild wall thickening and pericolic stranding suggested involving th e left colon. The appendix is not identified and reported surgically absent. Peritoneum: There is no intraperitoneal free air or abdominal ascites. Lymphadenopathy: None. Pelvic viscera: The prostate gland is diminutive and heterogeneous. The bladder wall is thickened and trabeculated indicating chronic outlet obstruction. There is a small fat-containing left inguinal he rnia. Skeletal structures: The skeletal structures are osteopenic. There is moderate to advanced lumbosacra l spondylosis and scoliosis. Postlaminectomy change is noted throughout the lumbar spine. No lytic or blastic lesions are seen. IMPRESSION: 1. Cardiomegaly, emphysema, and chronic pulmonary parenchymal changes as above. 2. There is no airspace consolidation or pleural effusion. 3. Question a mild nonspecific colitis of the left colon. Clinical correlation will be required. 4. There is rectosigmoid fecal retention. No bowel obstruction is seen. 5. Additional findings as above. Electronically signed by: Lisandro Palomino M.D. 10/30/2018 4:59 PM
[2018-10-30] MEDS ORDERED: metroNIDAZOLE 250 MG TAB PO STA (17:27)
[2018-10-30 20:11] LABS: Appearance Urine Clear (Clear); Bilirubin Urine Negative (Negative); Blood Urine Negative (Negative); Color Urine Yellow; Glucose Urine UA Negative (Negative); Ketones Urine Negative (Negative); Leukocyte Esterase Urine Negative (Negative); Nitrite Urine Negative (Negative); Protein Urine Negative (Negative); Specific Gravity Urine > 1.045 (1.000-1.030); Urobilinogen Urine Negative (Negative)
[2018-10-30] MEDS ORDERED: ONDANSETRON INJ 2 MG/ML 2 ML VIAL IV PRN (20:52)
[2018-10-30] MEDS ORDERED: ACETAMINOPHEN 325 MG TAB PO PRN (20:52)
[2018-10-30] MEDS ORDERED: ALBUTEROL 0.5% NEB SOLN 2.5 MG/0.5 ML VIAL NEB PRN (20:52)
[2018-10-30] MEDS ORDERED: POLYETHYLENE (MIRALAX) 17 GM PACK PO PRN (20:52)
[2018-10-30] MEDS ORDERED: DOCUSATE SODIUM 100 MG CAP PO PRN (20:52)
--- NOTE | 2018-10-30 21:05 | History & Physical Report ---
Date of Service October 30, 2018 Assessment & Plan (1) Altered mental status: Patient is an 88yo male with history of CAD s/p CABG, recent TAVR performed at [facility] 2 months ago presenting with subjective fevers/chills/confusion/nausea. Also with SOB/weakness and fatigue. Patient leukopenic here with WBC of 3.81, lymphocytopenia noted on differential. ?viral illness. No overt infectious source - UA negative, CT chest without PNA. CT abdomen with mention of non-specific colitis, patient denies GI complaints or abdominal pain and states that he has some chronic issues of his left colon. Family and patient are convinced that he has PNA and state that this is very typically how he presents. Otherwise, patient with mild hyponatremia that is near his baseline. Electrolytes otherwise WNL, not on sedating medications or pain meds, CT head with chronic senescent changes, TSH WNL. Exam is largely unremarkable. Per review of outpatient records, patient experiences periodic fevers at night which were present prior to surgery. -Admit to medical floor with telemetry monitoring -Check Procalcitonin -Check blood cultures x 2 sets -Check CXR PA and lateral tomorrow to assess for infiltrate -Empiric treatment with Ceftriaxone/Azithromycin Present on Admission?: Yes (2) Colitis: As noted on CT. Patient with no abdominal complaints. He received Flagyl in ER -Continue to monitor -Stool culture sent in ER -Will hold off on additional antibiotics for colitis -Continue to monitor (3) Elevated troponin: Patient with mild elevation in troponin of 0.118. He is 2 months out from his TAVR. Denies CP/palpitations. Appear euvolemic on exam. Has elevation of BNP -Telemetry monitoring -Trend troponin x 3 sets -Continue ASA, Atorvastatin, Metoprolol -Check 2D echo - patient with elevated BNP, SOB -Consider cardiology consultation Present on Admission?: Yes (4) S/P TAVR (transcatheter aortic valve replacement): S/p TAVR for severe calcific aortic stenosis. Patient was admitted to [facility] from 08/30 - 09/01/18. Successful procedure. Post-operative Hg was 9.6 and echo with EF of 60%. Complicated by post-operative PNA for which he completed a course of antibiotics (finished on 09/12/18). He had a followup CXR on 09/15/18 which was negative. -Request records from [facility] -Echo in AM Present on Admission?: Yes (5) Hx of CABG: Patient with CAD s/p CABG x 3 in 2010 at [facility] [place]. [place]. He had MARTINEZ to LAD, SVG to LCx marginal and right PDA. Patient presently with no CP, no EKG changes consistent with ischemia. Mild elevation in troponin of 0.118 -As above, telemetry monitoring, trend troponin, echo in AM -Continue ASA, Atorvastatin, Metoprolol with holding parameters (6) Anemia: Normochromic, normocytic anemia with Hg=11.2 and Hct=33.4. No active bleeding. Per record review, Hg on discharge from [facility] was 9.6. He has been taking Fe supplementation -Continue to monitor -CBC in AM (7) Prostate cancer: Patient with prostate cancer. He follows with Urology, last seen on 05 October 2018. He is takiing Casodex 50mg po every other day. He is to followup with Urology re: discussion of possible radiation therapy now that his valve has been replaced. -Continue Casodex every other day -Urology followup outpatient as planned F/E/N- Heplock. Electrolytes WNL. Heart healthy diet as tolerated Ppx - Lovenox Code - Full Dispo - Admission with telemetry monitoring History of Present Illness Chief Complaint: Fever, "feeling ill" Primary Care Provider: Bhaskar Gaffney MD Mr. Cartwright is a pleasant 88yo male with history of CAD s/p CABG in 2010, s/p TAVR performed at [facility] 2 months ago complicated by post-operative PNA. Patient has been doing well overall since the surgery. He has had diffuse weakness and fatigue which was present before the TAVR - has mildly improved since having the TAVR. He has yet to start cardiac rehabilitation. Patient began feeling "ill" last night. Fever of 100.3, chills, worsening weakness and fatigue. He developed nausea and one episode of non-bloody/non-bilious vomiting. His family states that he was confused and less responsive than baseline. Patient also reports worsening shortness of breath and wheezing. He denies CP/palpitations/orthopnea/edema or weight gain. Denies abdominal pain, distention or bloating. No further nausea or vomiting. No constipation but has intermittent diarrhea. Patient and family report that this is exactly how he typically presents when he has PNA. Per family patient's BNP level during pre-operative assessment was 740, repeat immediately before surgery was 537. Karely reports patient's troponin on discharge from [facility] was 0.83. When he returned the day after disch arge for his PNA his troponin was 0.89. Family also reports that patient has a chronic issue with his left colon. During a prior colonoscopy they were unable to pass the scope due to a "kink" in his intestines. Er Course: Flagyl 500mg, NSS x 1 L Allergies Allergy/AdvReac Type Severity Reaction Status Date / Time No Known Allergies Allergy Unknown Verified 10/30/18 14:14 Home Medications Home Medications Medication Instructions Recorded Confirmed Type Albuterol Rescue 0 dose PO DIRECTED 10/30/18 10/30/18 History C,E,zinc,copper [id number] 1 cap PO DAILY 10/30/18 10/30/18 History [Ocuvite Adult 50 Plus] amoxicillin 500 mg PO DIRECTED PRN 10/30/18 10/30/18 History aspirin 81 mg PO DAILY 10/30/18 10/30/18 History atorvastatin 40 mg PO DAILY 10/30/18 10/30/18 History bicalutamide 50 mg PO DAILY 10/30/18 10/30/18 History calcium carbonate 600 mg PO DAILY 10/30/18 10/30/18 History ferrous sulfate 325 mg PO QAM 10/30/18 10/30/18 History fluticasone propion-salmeterol 1 puff INHALATION DIRECTED 10/30/18 10/30/18 History [Advair Diskus] melatonin 5 mg PO DAILY 10/30/18 10/30/18 History metoprolol succinate [Toprol XL] 25 mg PO DAILY 10/30/18 10/30/18 History multivitamin 1 tab PO DAILY 10/30/18 10/30/18 History triamterene-hydrochlorothiazid 1 cap PO DAILY 10/30/18 10/30/18 History Past Med/Surg History Medical History Pneumonia (Acute) Acid reflux (Chronic) Pancreatitis (Resolved) CAD (coronary artery disease) COPD (chronic obstructive pulmonary disease) Surgical History S/P TAVR (transcatheter aortic valve replacement) (Acute) Hx of CABG (Acute) History of appendectomy Family History Other Family history non-contributory Social History marital status: Current Living Situation: Spouse current occupational status: retired Feels Safe at Home: Yes Smoking Status: Former smoker Hx Alcohol Use: No Hx Substance Use: No Review of Systems All systems reviewed & are unremarkable except as noted in HPI & below Patient reports 10# weight loss since the surgery Physical Exam Vital Signs (Past 24 Hours): Last Vital Signs Temp 36.4 C L 10/30/18 13:01 Pulse 61 10/30/18 19:39 Resp 18 10/30/18 19:39 BP 90/52 L 10/30/18 19:39 Pulse Ox 94 10/30/18 19:39 Physical Exam: General: patient resting comfortably, NAD, non-toxic in appearance, AA&O x 4, somewhat slow to answer Skin: warm, dry, intact, no rashes or lesions HEENT: NC/AT, PERRL, EOMI, anicteric sclera, conjunctiva without injection, external ear normal to inspection and nontender, nares patent, moist mucus membranes, dentition intact, no oropharyngeal lesions, neck supple, trachea midline, no LAD, no thyromegaly, no JVD, hearing aides in place Heart: +S1/S2, regular, 2/6 AQUILINO at 2nd right ICS with radiation across the precordium, no rubs/gallops Lungs: equal air entry bilaterally, faint crackles in bilateral bases, no rhonchi/wheezes Abd: +BS, soft, NT/ND, no masses/organomegaly/ascites Ext: warm, 2+ pulses in UE/LE bilaterally, no clubbing/cyanosis or edema, TAVR accessed through right groin - well healed, no hematoma or tenderness Neuro: nonfocal, patient AA&O x 4 somewhat slow to answer, speech intact, no facial droop, moving all extremities on command with equal strength 5/5 Results & Data Laboratory Results Lab Results 10/30/18 10/30/18 10/30/18 Range/Units 13:54 13:54 13:54 WBC 3.81 L (4.8-10.8) K/uL RBC 3.61 L (4.7-6.1) M/uL Hgb 11.2 L (14.0-18.0) g/dL Hct 33.4 L (42-52) % MCV 92.5 (80-100) fL MCH 31.0 (25-34) pg MCHC 33.5 (32-36) g/dL RDW Std Deviation 47.8 H (36.4-46.3) fL RDW Coeff of Perri 14.1 (11.5-14.5) % Plt Count 198 (130-400) K/uL MPV 9.6 (7.4-10.4) fL Immature Gran % (Auto) 0.5 % Neut % (Auto) 84.8 % Lymph % (Auto) 8.9 % [place] % (Auto) 5.5 % Eos % (Auto) 0.0 % Baso % (Auto) 0.3 % Immature Gran # (Auto) 0.02 (0.00-0.02) K/uL Neut # (Auto) 3.23 (1.4-6.5) K/uL Lymph # (Auto) 0.34 L (1.2-3.4) K/uL [place] # (Auto) 0.21 (0.11-0.59) K/uL Eos # (Auto) 0.00 (0-0.5) K/uL Baso # (Auto) 0.01 (0-0.2) K/uL PT 11.4 (9.0-12.0) Seconds INR 1.1 (0.9-1.1) Sodium 135 L (136-145) mmol/L Potassium 3.6 (3.5-5.1) mmol/L Chloride 101 (98-107) mmol/L Carbon Dioxide 26 (21-32) mmol/L Anion Gap 8.0 (3-11) BUN 25 H (7-18) mg/dl Creatinine 1.38 (0.6-1.4) mg/dl Est Cr Clr Drug Dosing 34.5 ml/min Est GFR ( Amer) 52.2 Est GFR (Non-Af Amer) 45.0 BUN/Creatinine Ratio 18.0 (10-20) Glucose 106 H (70-99) mg/dl POC Lactic Acid Sd (0.90-1.70) mmol/L Calcium 8.8 (8.5-10.1) mg/dl Magnesium 2.1 (1.8-2.4) mg/dl Total Bilirubin 0.5 (0.2-1) mg/dl AST 26 (15-37) U/L ALT 22 (12-78) U/L Alkaline Phosphatase 76 (45-117) U/L Troponin I 0.118 H* (0-0.045) ng/ml NT-Pro-B Natriuret Pep 3506 H (0-1800) pg/ml Total Protein 6.9 (6.4-8.2) gm/dl Albumin 3.0 L (3.4-5.0) gm/dl Globulin 3.9 (2.5-4.0) gm/dl Albumin/Globulin Ratio 0.8 L (0.9-2) Lipase 119 (73-393) U/L TSH 1.060 (0.300-4.500) uIu/ml Urine Color Urine Appearance (Clear) Urine pH (4.5-7.5) Ur Specific Combs (1.000-1.030) Urine Protein (Negative) Urine Glucose (UA) (Negative) Urine Ketones (Negative) Urine Blood (Negative) Urine Nitrite (Negative) Urine Bilirubin (Negative) Urine Urobilinogen (Negative) Ur Leukocyte Esterase (Negative) Influenza Type A (PCR) (Neg) Influenza Type B (PCR) (Neg) 10/30/18 10/30/18 10/30/18 Range/Units 14:01 14:40 19:49 WBC (4.8-10.8) K/uL RBC (4.7-6.1) M/uL Hgb (14.0-18.0) g/dL Hct (42-52) % MCV (80-100) fL MCH (25-34) pg MCHC (32-36) g/dL RDW Std Deviation (36.4-46.3) fL RDW Coeff of Perri (11.5-14.5) % Plt Count (130-400) K/uL MPV (7.4-10.4) fL Immature Gran % (Auto) % Neut % (Auto) % Lymph % (Auto) % [place] % (Auto) % Eos % (Auto) % Baso % (Auto) % Immature Gran # (Auto) (0.00-0.02) K/uL Neut # (Auto) (1.4-6.5) K/uL Lymph # (Auto) (1.2-3.4) K/uL [place] # (Auto) (0.11-0.59) K/uL Eos # (Auto) (0-0.5) K/uL Baso # (Auto) (0-0.2) K/uL PT (9.0-12.0) Seconds INR (0.9-1.1) Sodium (136-145) mmol/L Potassium (3.5-5.1) mmol/L Chloride (98-107) mmol/L Carbon Dioxide (21-32) mmol/L Anion Gap (3-11) BUN (7-18) mg/dl Creatinine (0.6-1.4) mg/dl Est Cr Clr Drug Dosing ml/min Est GFR ( Amer) Est GFR (Non-Af Amer) BUN/Creatinine Ratio (10-20) Glucose (70-99) mg/dl POC Lactic Acid Sd 1.44 (0.90-1.70) mmol/L Calcium (8.5-10.1) mg/dl Magnesium (1.8-2.4) mg/dl Total Bilirubin (0.2-1) mg/dl AST (15-37) U/L ALT (12-78) U/L Alkaline Phosphatase (45-117) U/L Troponin I (0-0.045) ng/ml NT-Pro-B Natriuret Pep (0-1800) pg/ml Total Protein (6.4-8.2) gm/dl Albumin (3.4-5.0) gm/dl Globulin (2.5-4.0) gm/dl Albumin/Globulin Ratio (0.9-2) Lipase (73-393) U/L TSH (0.300-4.500) uIu/ml Urine Color Yellow Urine Appearance Clear (Clear) Urine pH 6.0 (4.5-7.5) Ur Specific Combs > 1.045 H (1.000-1.030) Urine Protein Negative (Negative) Urine Glucose (UA) Negative (Negative) Urine Ketones Negative (Negative) Urine Blood Negative (Negative) Urine Nitrite Negative (Negative) Urine Bilirubin Negative (Negative) Urine Urobilinogen Negative (Negative) Ur Leukocyte Esterase Negative (Negative) Influenza Type A (PCR) Neg for Influ A (Neg) Influenza Type B (PCR) Neg for Influ B (Neg) Diagnostic Findings CT SCAN OF THE CHEST, ABDOMEN, AND PELVIS WITH IV CONTRAST CLINICAL HISTORY: Cough. Nausea and vomiting. COMPARISON STUDY: Chest CT dated 02/14/2017. Chest x-ray dated 10/30/2018. Abd ominal CT dated 05/23/2013. Nuclear bone scan dated 07/30/2016. TECHNIQUE: Following the IV administration of 94 of Optiray 320, CT scan of the chest, abdomen, and pelvis was performed from the thoracic inlet to the proximal femora. Images are reviewed in the axial, sagittal, and coronal planes. IV contrast was administered without complication. A dose lowering technique was utilized adhering to the principles of ALARA. CT DOSE: 489.63 mGy.cm FINDINGS: CHEST: Thyroid: Imaged portions of the thyroid gland are normal in size and attenuation. Thoracic aorta: There is atherosclerotic calcification of the thoracic aorta, which is normal in caliber and demonstrates standard 3-vessel arch anatomy. No dissection is seen. Pulmonary vasculature: The main pulmonary arteries are mildly dilated suggesting pulmonary artery hypertension. There are no filling defects identified in the central pulmonary vessels to indicate pulmonary embolus. Note that this examination was not protocoled for evaluation of the pulmonary arteries. Heart: The patient is status post midline sternotomy. Postoperative change is noted at the aortic valve. The heart is enlarged and without pericardial effusion. The coronary arteries are densely calcified. Lungs and pleural spaces: Emphysematous change is again noted. No airspace consolidation or pleural effusion is identified. There is chronic elevation of left hemidiaphragm with bibasilar scarring/atelectasis. A 4 mm pleural-based nodule in the left lower lobe along the major fissure seen on image #145 is unchanged from 2017 and of doubtful significance. The trachea and central airways are clear. Mediastinum: There are numerous subcentimeter mediastinal lymph nodes. These are not pathologically enlarged by size criteria. Yamini: Prominent hilar nodes measure up to 10 mm in short axis. Axillae: There is no axillary lymphadenopathy. Soft tissues: Gynecomastia is noted. A 16 mm sebaceous cyst is present in the right upper back on image #62. Bony thorax: The skeletal structures are osteopenic. There are numerous healed right-sided rib fractures. There is chronic posttraumatic deformity of the right clavicle. Degenerative change and scoliosis are noted in the thoracic spine. Advanced arthritic change is seen in the shoulders. Numerous joint bodies and bursal fluid are identified. No lytic or blastic lesions are identified. ABDOMEN AND PELVIS: Liver: The contrast-enhanced liver is normal in size, contour, and attenuation. There is no intrahepatic or ductal dilatation. The hepatic veins and portal veins are patent. Gallbladder: Unremarkable. Spleen: Normal in size and attenuation. Pancreas: Mildly atrophic and grossly unremarkable. Adrenal glands: Unremarkable. Kidneys: The contrast enhanced kidneys demonstrate cortical atrophy and are without hydronephrosis. The kidneys enhance symmetrically. There are 2 left renal cyst which measure up to 3.4 cm. Abdominal vasculature: The abdominal aorta is normal in course and caliber n oting advanced atherosclerotic calcification. Bowel: Fundoplication change is questioned at the gastric fundus. There is rectosigmoid fecal retention. No bowel obstruction is seen. Mild wall thickening and pericolic stranding suggested involving the left colon. The appendix is not identified and reported surgically absent. Peritoneum: There is no intraperitoneal free air or abdominal ascites. Lymphadenopathy: None. Pelvic viscera: The prostate gland is diminutive and heterogeneous. The bladder wall is thickened and trabeculated indicating chronic outlet obstruction. There is a small fat-containing left inguinal hernia. Skeletal structures: The skeletal structures are osteopenic. There is moderate to advanced lumbosacral spondylosis and scoliosis. Postlaminectomy change is noted throughout the lumbar spine. No lytic or blastic lesions are seen. IMPRESSION: 1. Cardiomegaly, emphysema, and chronic pulmonary parenchymal changes as above. 2. There is no airspace consolidation or pleural effusion. 3. Question a mild nonspecific colitis of the left colon. Clinical correlation will be required. 4. There is rectosigmoid fecal retention. No bowel obstruction is seen. 5. Additional findings as above. Electronically signed by: Lisandro Palomino M.D. 10/30/2018 4:59 PM Dictated: 10/30/18 1644 ---- CT SCAN OF THE BRAIN WITHOUT IV CONTRAST CLINICAL HISTORY: Change in mental status. COMPARISON STUDY: CT of the brain dated 02/14/2017. TECHNIQUE: Unenhanced axial CT scan of the brain is performed from the vertex to the skull base. A dose lowering technique was utilized adhering to the principles of ALARA. CT DOSE: 537.48 mGy.cm FINDINGS: Brain parenchyma: There are age-related involutional changes noting moderate to advanced confluent subcortical and periventricular microangiopathic change. There is no hemorrhage, mass effect, or evidence of acute territorial ischemia by CT criteria. Muñoz-white matter differentiation is preserved. No extra-axial f luid collection is seen. Ventricles, sulci, cisterns: Prominent secondary to involutional change. Intracranial vasculature: There is atherosclerotic calcification of the cavernous carotid and vertebral arteries. Calvarium: Unremarkable. Sinuses and mastoids: Moderate mucosal thickening is noted within the frontal and ethmoid sinuses. The mastoid air cells are well pneumatized. Orbits: The bony orbits are grossly intact. There are bilateral ocular lens implants. IMPRESSION: 1. Senescent changes as above with no hemorrhage, mass effect, or evidence of acute territorial ischemia by CT criteria. 2. Paranasal sinus disease as above. Electronically signed by: Lisandro Palomino M.D. 10/30/2018 2:30 PM Dictated: 10/30/18 1427 Transcribed: 10/30/18 1427 TWO VIEW CHEST CLINICAL HISTORY: Dyspnea. FINDINGS: PA and lateral chest radiographs are compared to study dated 09/15/2018 and correlated with chest CT dated 02/14/2017. The patient is status post midline sternotomy and there is evidence of previous cardiac valve surgery. The heart is mildly enlarged and there is atherosclerotic calcification of the thoracic aorta. The pulmonary vasculature is noncongested. Enlargement of the central pulmonary arteries suggests pulmonary artery hypertension. Emphysema and chronic interstitial thickening are similar to previous. There is chronic elevation of the left hemidiaphragm with bibasilar scarring/atelectasis. There is no evidence of superimposed airspace consolidation or pleural effusion. There is no pneumothorax. The skeletal structures are osteopenic. Degenerative change is noted in the shoulders and thoracic spine. The bony thorax appears intact. IMPRESSION: Cardiomegaly and emphysema with no acute cardiopulmonary abnormality. Electronically signed by: Lisandro Palomino M.D. 10/30/2018 2:37 PM Dictated: 10/30/18 1435 Transcribed: 10/30/18 1435 ECG Additional Comments: The study shows SB at 59 with 1st degree AV block, normal axis, IP=551, QRS=94, CHu=329, no acute ischemic changes Code Status & VTE Plan Code Status Full code VTE Prophylaxis Plan VTE Prophylaxis will be ordered: Yes (1) Altered mental status Altered mental status type: unspecified Qualified Code(s): R41.82 - Altered mental status, unspecified
[2018-10-30] MEDS: cefTRIAXone SODIUM 1,000 MG in DEXTROSE 5% 50 ML IV SCH (21:59)
[2018-10-30] MEDS ORDERED: AZITHROMYCIN 500 MG in DEXTROSE 5% 250 ML IV ONE (22:00)
[2018-10-30] MEDS: ENOXAPARIN INJ 40 MG/0.4 ML SYR SQ SCH (22:01)
[2018-10-30] MEDS: FLUTICASONE/SALMETEROL 250/50 (ADVAIR) 14 PUFF/1 INHALER INH SCH (22:01)
[2018-10-30 22:19] LABS: Phosphorus 3.3 mg/dl (2.5-4.9); Troponin I 0.114 ng/ml (0-0.045)
[2018-10-30] MEDS ORDERED: SODIUM CHLORIDE 0.65% NA SOLN 45 ML (OCEAN) PRN (23:26)
[2018-10-31 06:29] LABS: Basophils # (auto) 0.01 K/uL (0-0.2); Basophils % (auto) 0.4 %; Hematocrit (blood only) 29.9 % (42-52); Hemoglobin 9.8 g/dL (14.0-18.0); Immature Granulocytes # (auto) 0.02 K/uL (0.00-0.02); Immature Granulocytes % (auto) 0.7 %; Lymphocytes # (auto) 0.64 K/uL (1.2-3.4); Lymphocytes % (auto) 23.4 %; Mean Corpuscular Hgb Conc 32.8 g/dL (32-36); Mean Corpuscular Volume 93.1 fL (80-100); Mean Platelet Volume 9.8 fL (7.4-10.4); Monocytes # (auto) 0.29 K/uL (0.11-0.59); Monocytes % (auto) 10.6 %; Neutrophils # (auto) 1.78 K/uL (1.4-6.5); Neutrophils % (auto) 64.9 %; Platelet Count 162 K/uL (130-400); RDW Coefficient of Variation 14.1 % (11.5-14.5); RDW Standard Deviation 48.4 fL (36.4-46.3); Red Blood Count 3.21 M/uL (4.7-6.1); White Blood Count 2.74 K/uL (4.8-10.8)
[2018-10-31 06:59] LABS: BUN Creatinine Ratio 20.8 (10-20); Calcium 8.1 mg/dl (8.5-10.1); Creatinine Clr Calc Pharmacy 42.9 ml/min; Est GFR (African American) 67.1; Est GFR (Non-African American) 57.9; Potassium 3.6 mmol/L (3.5-5.1)
[2018-10-31 07:05] LABS: Troponin I 0.119 ng/ml (0-0.045)
[2018-10-31] MEDS: TRIAMTERENE/HCTZ 37.5/25MG CAP PO SCH (07:42)
[2018-10-31] MEDS: FLUTICASONE/SALMETEROL 250/50 (ADVAIR) 14 PUFF/1 INHALER INH SCH ×2 (07:42→21:19)
[2018-10-31] MEDS: ATORVASTATIN 40 MG TAB PO SCH (07:42)
[2018-10-31] MEDS: FERROUS SULFATE 325 MG TAB PO SCH (07:42)
[2018-10-31] MEDS: CALCIUM CARBONATE 1250MG TAB PO SCH (07:43)
[2018-10-31] MEDS: BICALUTAMIDE 50 MG TAB PO SCH (07:43)
[2018-10-31] MEDS: ASPIRIN 81 MG ECTAB PO SCH (07:43)
[2018-10-31] MEDS: METOPROLOL SUCC 25MG EXT REL TAB PO SCH (07:45)
[2018-10-31] MEDS ORDERED: NON-FORMULARY MEDICATION (Melatonin 5 MG) PO SCH (09:00)
--- NOTE | 2018-10-31 10:07 | XRay Report ---
XR chest 2V routine CLINICAL HISTORY: assess for PNA dyspnea COMPARISON STUDY: 10/30/2018 FINDINGS: Mild stable cardia megaly. Prior median sternotomy and valve repair or seizures. Moderate emphysematous change. Mild bibasilar atelectatic change. IMPRESSION: Emphysematous and mild basilar atelectatic change. No acute infiltrate. The above report was generated using voice recognition software. It may contain grammatical, syntax or spelling errors. Electronically signed by: Abraham Tyler M.D. 10/31/2018 10:05 AM
[2018-10-31] MEDS: DOXYCYCLINE HYCLATE 100 MG in DEXTROSE 5% 100 ML IV SCH ×2 (10:15→21:22)
[2018-10-31] MEDS: metroNIDAZOLE 500 MG/100 ML BAG IV SCH ×2 (10:21→17:36)
--- NOTE | 2018-10-31 15:19 | Hospitalist Progress Note ---
Date of Service October 31, 2018 Assessment & Plan (1) Altered mental status: Patient is an 88yo male with history of CAD s/p CABG, recent TAVR performed at [facility] 2 months ago presenting with subjective fevers/chills/confusion/nausea. Also with SOB/weakness and fatigue. Patient leukopenic here with WBC of 3.81, lymphocytopenia noted on differential. ?viral illness. No overt infectious source - UA negative, CT chest without PNA. CT abdomen with mention of non-specific colitis, patient denies GI complaints or abdominal pain and states that he has some chronic issues of his left colon. Family and patient are convinced that he has PNA and state that this is very typically how he presents. Otherwise, patient with mild hyponatremia that is near his baseline. Electrolytes otherwise WNL, not on sedating medications or pain meds, CT head with chronic senescent changes, TSH WNL. Exam is largely unremarkable. Per review of outpatient records, patient experiences periodic fevers at night which were present prior to surgery. With fever at home of unclear source. Has no signs of colitis on exam or by history. He does however have chronic sinusitis with recurrent low grade fevers and delirium over the last 6 months up to 10 times as per . WBC low which points more towards viral syndrome. PCT negative Blood cultures x 2 sets NGTD Repeat CXR PA and lateral without infiltrate-ruled out PNA -treat as below for colitis with Rocephin, add Flagyl, treat for pulm source and MRSA if in sinuses? with doxy and Rocephin -check CT sinuses (2) Colitis: As noted on CT. Patient with no abdominal complaints. He received Flagyl in ER -Continue to monitor -Stool culture sent in ER -add Flagyl back on and continue Rocephin (3) Elevated troponin: Patient with mild elevation in troponin of 0.118 x 3. He is 2 months out from his TAVR. Denies CP/palpitations. Appear euvolemic on exam. 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 Patient was admitted to [facility] from 08/30 - 09/01/18. Successful procedure. Post-operative Hg was 9.6 and echo with EF of 60%. Complicated by post-operative PNA for which he completed a course of antibiotics (finished on 09/12/18). He had a followup CXR on 09/15/18 which was negative. Was told at f/u appt last week that his valve is functioning beautifully -Request records from [facility] -Echo in AM (5) Hx of CABG: Patient with CAD s/p CABG x 3 in 2010 at [facility] [place] by Dr. Cabrera. He had MARTINEZ to LAD, SVG to LCx marginal and right PDA. Patient presently with no CP, no EKG changes consistent with ischemia. Mild elevation in troponin of 0.118 -As above, telemetry monitoring, echo in AM -Continue ASA, Atorvastatin, Metoprolol with holding parameters (6) Anemia: Normochromic, normocytic anemia with Hg=11.2 and Hct=33.4.Now with drop in hgb to 9.8 could be hemodilutional No active bleeding. Per record review, Hg on discharge from [facility] was 9.6. He has been taking Fe supplementation -Continue to monitor -CBC in AM -check Fe studies, B12. folate, hemoccult stool (7) Prostate cancer: Patient with prostate cancer. He follows with Urology, last seen on 05 October 2018. He is takiing Casodex 50mg po every other day. He is to followup with Urology re: discussion of possible radiation therapy now that his valve has been replaced. -Continue Casodex every other day -Urology followup outpatient as planned (8) Sinus drainage: black drainage daily and congestion x 5 years, no facial pain on exam -check CT sinuses -treating with rocephin, doxy -needs ENT outpt referral (9) Fever: as above (10) Vomiting: related to fever? he is prone to vomiting every time he gets a fever now resolved (11) HTN (hypertension), benign: controlled -continue dyazide daily (12) DVT prophylaxis: Lovenox S Dispo-remain on tele, PT/OT evals, possible dc to home tomorrow Subjective Pt feeling a little better today. no more N/V. Is moving bowels, no diarrhea. reports he has been blowing black mucus out o fhis nose for 5 years and review of outpt record shows ENT was recommending surgery after multiple failed abx courses. He never followed up. reports this is the 10th time he has had this same presentation with fevers, delirium and vomiting. Most times, she calls his PCP and is prescribed abx at home for PNA but not seen for a week afterwards. Tele with sinus arrhythmia, rates 50-60s Review of Systems All systems reviewed & are unremarkable except as noted in HPI & below Physical Exam Vital Signs (Past 24 Hours): Last Vital Signs Temp 36.5 C 10/31/18 12:00 Pulse 64 10/31/18 12:00 Resp 18 10/31/18 12:00 BP 108/81 10/31/18 12:00 Pulse Ox 94 10/31/18 12:00 Constitutional: WD/WN, vitals as above Eyes: PERRL, conjunctivae normal, anicteric sclerae ENMT: external ear and nose normal, oropharynx normal Neck: trachea midline, no thyromegaly Respiratory: normal respiratory effort, lungs clear to auscultation Cardiovascular: Rate/Rhythm: regular rate and regular rhythm Heart Sounds: + murmur (2/6 RUSB) Gastrointestinal (Abdomen): normal bowel sounds, soft, nontender, no hepatosplenomegaly Musculoskeletal: Extremities: extremities normal to inspection; no cyanosis and no clubbing Skin: no rashes, warm and dry Neurologic: moves all extremities and awake; no focal motor deficits Psychiatric: A+Ox3, euthymic affect Results & Data Laboratory Results WBC 2.7 hgb 9.8 plts 162 Na 133 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
--- NOTE | 2018-10-31 15:55 | CT Scan Report ---
CT sinus wo con CT DOSE: 840.04 mGy.cm HISTORY: Pain black nasal drainage,fever TECHNIQUE: Multiaxial CT images of the paranasal sinuses were performed and reformatted in the rousseau l plane without the use of contrast. A dose lowering technique was utilized adhering to the principl es of WARREN. COMPARISON: None. FINDINGS: Moderate to rather significant mucosal thickening of all major sinuses. Hypertrophic change s the nasal turbinates. 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 Orbital margins are intact. No evidence for bony destructive process. The mastoid air cells are clear . The bilateral ostiomeatal units are patent. The orbits are unremarkable. IMPRESSION: 1. Significant mucosal thickening of all major sinuses. 2. 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 3. No evidence for a bony destructive process. 4. Hypertrophic change of the nasal turbinates. The above report was generated using voice recognition software. It may contain grammatical, syntax or spelling errors. Electronically signed by: Abraham Tyler M.D. 10/31/2018 3:53 PM
--- NOTE | 2018-10-31 20:54 | Emergency Department Note ---
Entered by Katheryn George acting as a scribe for Raquel Merida DO History of Present Illness General Chief complaint: Vomiting Stated complaint: VOMITING Time Seen by Provider: 10/30/18 13:21 Source: patient and family (, daughter) History of Present Illness Onset (ago): day(s) (last night) Location: abdomen Pain Consistency: + other (episode) Quality: + other (vomiting) Exacerbated By: + eating Associated symptoms: + denies other symptoms (abdominal pain, sore throat, diarrhea, leg swelling, chest pressure), + confusion, + cough (non-productive), + fever/chills, + loss of appetite and + nausea/vomiting; no chest pain and no shortness of breath The patient is a 88 year old male who presents to the Emergency Room with complaints of an episode of vomiting that occurred last night during the middle of the night. The patient reports an associated subjective fever, chills, cough, and post-nasal drip. He states that he felt nauseous and disoriented before he vomited. He notes that he had not eaten since lunch and that it looked like he had not digested any of the food. His notes that the patient has had similar episodes in the past and is unresponsive during these episodes, looking right through her and not moving normally. His daughter notes that the patient becomes incontinent during his recent episodes. He denies any associated shortne ss of breath, chest pain, chest pressure, abdominal pain, diarrhea, leg swelling, sputum production, or sore throat. He denies any sick contacts. He states that he is chilled at baseline but it is worse currently and causing him discomfort. The patient notes that he is not currently nauseous but is not hungry. 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 He notes he has had pneumonia numerous times in the past. He states that he had pneumonia 3 times during the summer of 2010 until he received a triple CABG at [place]. He notes that he uses Advair 2 times a day but does not use O2 at home. Home Medications Home Medications Medication Instructions Recorded Confirmed Type Albuterol Rescue 0 dose PO DIRECTED 10/30/18 10/30/18 History C,E,zinc,copper [id number] 1 cap PO DAILY 10/30/18 10/30/18 History [Ocuvite Adult 50 Plus] amoxicillin 500 mg PO DIRECTED PRN 10/30/18 10/30/18 History aspirin 81 mg PO DAILY 10/30/18 10/30/18 History atorvastatin 40 mg PO DAILY 10/30/18 10/30/18 History bicalutamide 50 mg PO DAILY 10/30/18 10/30/18 History calcium carbonate 600 mg PO DAILY 10/30/18 10/30/18 History ferrous sulfate 325 mg PO QAM 10/30/18 10/30/18 History fluticasone propion-salmeterol 1 puff INHALATION DIRECTED 10/30/18 10/30/18 History [Advair Diskus] melatonin 5 mg PO DAILY 10/30/18 10/30/18 History metoprolol succinate [Toprol XL] 25 mg PO DAILY 10/30/18 10/30/18 History multivitamin 1 tab PO DAILY 10/30/18 10/30/18 History triamterene-hydrochlorothiazid 1 cap PO DAILY 10/30/18 10/30/18 History Allergies Allergy/AdvReac Type Severity Reaction Status Date / Time No Known Allergies Allergy Unknown Verified 10/30/18 14:14 Past Med/Surg History Family History Other Family history non-contributory Social History Preferred Language: Stateless Communication Ability: Effective Size Tester Required: No Beliefs That Will Affect Care: None marital status: Current Living Situation: Spouse current occupational status: retired Other Information That Helps Us Care for You: No Feels Safe at Home: Yes Smoking Status: Former smoker Hx Alcohol Use: No Hx Substance Use: No Review of Systems See HPI for pertinent positives & negatives. and A total of 10 systems reviewed and were otherwise negative Physical Exam Vital Signs Vital Signs - 24 hr 10/30/18 21:00 10/31/18 00:11 10/31/18 04:00 Temperature 36.8 C 36.9 C 36.7 C Temperature Source Oral Oral Oral Pulse Rate Pulse Rate [Apical] 63 61 63 Pulse Rate [Brachial] Pulse Rate [Left Brachial] Respiratory Rate 18 18 18 Respiratory Effort / Characteristics SOB on Exertion Respiratory Depth Normal Respiratory Pattern Regular Blood Pressure [Left Arm] 101/57 L 95/52 L 102/45 L Blood Pressure Mean [Left Arm] 71 66 64 Blood Pressure Position [Left Arm] Lying Lying Pulse Oximetry 91 92 91 Oxygen Delivery Method Room Air Room Air Room Air 10/31/18 07:55 10/31/18 08:00 10/31/18 12:00 Temperature 37.2 C 36.5 C Temperature Source Oral Oral Pulse Rate 59 L Pulse Rate [Apical] 62 Pulse Rate [Brachial] 62 Pulse Rate [Left Brachial] 64 Respiratory Rate 18 18 Respiratory Effort / Characteristics Non-Labored Spontaneous SOB on Exertion Respiratory Depth Normal Respiratory Pattern Regular Blood Pressure [Left Arm] 95/48 L 99/52 L 108/81 Blood Pressure Mean [Left Arm] 63 67 90 Blood Pressure Position [Left Arm] Semi-fowlers Semi-fowlers Pulse Oximetry 92 94 Oxygen Delivery Method Room Air Room Air 10/31/18 16:00 10/31/18 19:22 Temperature 36.4 C L 36.9 C Temperature Source Oral Oral Pulse Rate 59 L Pulse Rate [Apical] Pulse Rate [Brachial] Pulse Rate [Left Brachial] 60 63 Respiratory Rate 20 18 Respiratory Effort / Characteristics Respiratory Depth Respiratory Pattern Blood Pressure [Left Arm] 121/50 L 134/67 Blood Pressure Mean [Left Arm] 73 89 Blood Pressure Position [Left Arm] Pulse Oximetry 93 94 Oxygen Delivery Method Room Air Room Air GENERAL: alert, well appearing, well nourished, no distress, non-toxic EYE EXAM: normal conjunctiva, PERRL and EOM's grossly intact OROPHARYNX: no exudate, no erythema, lips, buccal mucosa, and tongue normal and mucous membranes are moist NECK: supple, no nuchal rigidity, no adenopathy, non-tender LUNGS: No wheezes, rales, or rhonchi. Well-healed vertical sternotomy scar. Normal chest wall mechanics HEART: no murmurs, S1 normal and S2 normal ABDOMEN: abdomen soft, non-tender, normo-active bowel sounds, no masses, no rebound or guarding. BACK: Back is symmetrical on inspection and there is no deformity, no midline tenderness, no CVA tenderness. SKIN: no rashes and no bruising UPPER EXTREMITIES: upper extremities are grossly normal. FROM, nml pulses b/l. LOWER EXTREMITIES: No pitting edema. FROM, nml pulses b/l. NEURO EXAM: Normal sensorium, normal speech, no gross weakness of arms, no gross weakness of legs. Course 1323: The patient was evaluated in room C11B, and a complete history and physical examination were performed. 1537: I updated the patient on his current lab and imaging results. 1717: I reevaluated the patient who continues to have similar symptoms. I discussed today's findings with the patient. He is agreeable to the treatment plan. The patient will be evaluated for further management and care. 1734: I discussed the patient's case with ROCAEL Clinton, who will evaluate the patient for further management and care. Consultations Consultation #1: I discussed the patient's case with ROCAEL Clinton, who will evaluate the patient for further management and care. Time: 17:34 Administered Medications Aspirin (Ecotrin Ectab) 81 mg PO DAILY [facility] Stop: 11/30/18 08:59 Last Admin: 10/31/18 07:43 Dose: 81 mg Documented by: [id number] Atorvastatin Calcium (Lipitor) 40 mg PO DAILY [facility] Stop: 11/30/18 08:59 Last Admin: 10/31/18 07:42 Dose: 40 mg Documented by: [id number] Bicalutamide (Casodex) 50 mg PO DAILY [facility] Stop: 11/30/18 08:59 Last Admin: 10/31/18 07:43 Dose: 50 mg Documented by: [id number] Cosigned by: [id number] Calcium Carbonate (Os-Mack 500) 1,250 mg PO DAILY [facility] Stop: 11/30/18 08:59 Last Admin: 10/31/18 07:43 Dose: 1,250 mg Documented by: [id number] Enoxaparin Sodium (Lovenox) 40 mg SQ Q24H [facility] Stop: 11/29/18 20:59 Last Admin: 10/30/18 22:01 Dose: 40 mg Documented by: [id number] Ferrous Sulfate (Feosol) 325 mg PO QAM [facility] Stop: 11/30/18 08:59 Last Admin: 10/31/18 07:42 Dose: 325 mg Documented by: [id number] Ceftriaxone Sodium 1,000 mg/ (Dextrose) 50 mls @ 100 mls/hr IV Q24H [facility]; Prot ocol Stop: 11/01/18 20:59 Last Infusion: 10/30/18 22:30 Dose: 0 mls/hr Documented by: [id number] Admin: 10/30/18 21:59 Dose: 100 mls/hr Documented by: [id number] Doxycycline Hyclate 100 mg/ (Dextrose) 110 mls @ 50 mls/hr IV Q12 [facility] Stop: 11/07/18 08:59 Last Infusion: 10/31/18 12:58 Dose: 0 mls/hr Documented by: [id number] Admin: 10/31/18 10:15 Dose: 50 mls/hr Documented by: [id number] Metronidazole (Flagyl) 500 mg in 100 mls @ 100 mls/hr IV Q8H [facility] Stop: 11/10/18 09:59 Last Infusion: 10/31/18 18:50 Dose: 0 mls/hr Documented by: [id number] Admin: 10/31/18 17:36 Dose: 100 mls/hr Documented by: [id number] Infusion: 10/31/18 11:28 Dose: 0 mls/hr Documented by: [id number] Admin: 10/31/18 10:21 Dose: 100 mls/hr Documented by: [id number] Metoprolol Succinate (Toprol Xl) 25 mg PO DAILY [facility] Stop: 11/30/18 08:59 Last Admin: 10/31/18 07:45 Dose: Not Given Documented by: [id number] Fluticasone/Salmeterol (Advair Diskus 250/50) 1 puffs INH BID [facility] Stop: 11/29/18 20:59 Last Admin: 10/31/18 07:42 Dose: 1 puffs Documented by: [id number] Admin: 10/30/18 22:01 Dose: 1 puffs Documented by: [id number] Triamterene/HCTZ (Dyazide 37.5/25mg) 1 cap PO DAILY [facility] Stop: 11/30/18 08:59 Last Admin: 10/31/18 07:42 Dose: 1 cap Documented by: [id number] Discontinued Medications Sodium Chloride (Nss 1000ml) 1,000 mls @ 125 mls/hr IV .Q8H [facility] Stop: 11/29/18 13:44 Last Infusion: 10/30/18 21:27 Dose: 0 mls/hr Documented by: [id number] Admin: 10/30/18 14:34 Dose: 125 mls/hr Documented by: [id number] Azithromycin 500 mg/ Dextrose 255 mls @ 127.5 mls/hr IV NOW ONE Stop: 10/30/18 23:59 Last Infusion: 10/31/18 00:29 Dose: 0 mls/hr Documented by: [id number] Admin: 10/30/18 22:28 Dose: 127.5 mls/hr Documented by: [id number] Ioversol (Optiray 320 100ml) 94 ml IV ONCE PRN PRN Reason: Interaction Checking Stop: 11/03/18 16:37 Last Admin: 10/30/18 16:38 Dose: 94 ml Documented by: [id number] Metronidazole (Flagyl) 500 mg PO NOW STA Stop: 10/30/18 17:28 Last Admin: 10/30/18 17:44 Dose: 500 mg Documented by: [id number] Medical Decision Making Differential Diagnosis Differential diagnosis: Etiologies such as viral syndrome, otitis, pharyngitis, pneumonia, influenza, meningitis, urinary tract infection, sepsis, bacteremia, as well as others were entertained. Medical Records Attestation: I reviewed the patient's medical records. Home Medications Current Medication List: was personally reviewed by me Laboratory Data Attestation: I reviewed the patient's lab results. Result diagrams: 10/31/18 06:07 10/31/18 06:07 Lab Results 10/30/18 10/30/18 10/30/18 Range/Units 13:54 13:54 13:54 WBC 3.81 L (4.8-10.8) K/uL RBC 3.61 L (4.7-6.1) M/uL Hgb 11.2 L (14.0-18.0) g/dL Hct 33.4 L (42-52) % MCV 92.5 (80-100) fL MCH 31.0 (25-34) pg MCHC 33.5 (32-36) g/dL RDW Std Deviation 47.8 H (36.4-46.3) fL RDW Coeff of Perri 14.1 (11.5-14.5) % Plt Count 198 (130-400) K/uL MPV 9.6 (7.4-10.4) fL Immature Gran % (Auto) 0.5 % Neut % (Auto) 84.8 % Lymph % (Auto) 8.9 % [place] % (Auto) 5.5 % Eos % (Auto) 0.0 % Baso % (Auto) 0.3 % Immature Gran # (Auto) 0.02 (0.00-0.02) K/uL Neut # (Auto) 3.23 (1.4-6.5) K/uL Lymph # (Auto) 0.34 L (1.2-3.4) K/uL [place] # (Auto) 0.21 (0.11-0.59) K/uL Eos # (Auto) 0.00 (0-0.5) K/uL Baso # (Auto) 0.01 (0-0.2) K/uL PT 11.4 (9.0-12.0) Seconds INR 1.1 (0.9-1.1) Sodium 135 L (136-145) mmol/L Potassium 3.6 (3.5-5.1) mmol/L Chloride 101 (98-107) mmol/L Carbon Dioxide 26 (21-32) mmol/L Anion Gap 8.0 (3-11) BUN 25 H (7-18) mg/dl Creatinine 1.38 (0.6-1.4) mg/dl Est Cr Clr Drug Dosing 34.5 ml/min Est GFR ( Amer) 52.2 Est GFR (Non-Af Amer) 45.0 BUN/Creatinine Ratio 18.0 (10-20) Glucose 106 H (70-99) mg/dl POC Lactic Acid Sd (0.90-1.70) mmol/L Calcium 8.8 (8.5-10.1) mg/dl Phosphorus (2.5-4.9) mg/dl Magnesium 2.1 (1.8-2.4) mg/dl Total Bilirubin 0.5 (0.2-1) mg/dl AST 26 (15-37) U/L ALT 22 (12-78) U/L Alkaline Phosphatase 76 (45-117) U/L Troponin I 0.118 H* (0-0.045) ng/ml NT-Pro-B Natriuret Pep 3506 H (0-1800) pg/ml Total Protein 6.9 (6.4-8.2) gm/dl Albumin 3.0 L (3.4-5.0) gm/dl Globulin 3.9 (2.5-4.0) gm/dl Albumin/Globulin Ratio 0.8 L (0.9-2) Lipase 119 (73-393) U/L Procalcitonin (0-0.5) ng/ml TSH 1.060 (0.300-4.500) uIu/ml Urine Color Urine Appearance (Clear) Urine pH (4.5-7.5) Ur Specific [place] (1.000-1.030) Urine Protein (Negative) Urine Glucose (UA) (Negative) Urine Ketones (Negative) Urine Blood (Negative) Urine Nitrite (Negative) Urine Bilirubin (Negative) Urine Urobilinogen (Negative) Ur Leukocyte Esterase (Negative) Influenza Type A (PCR) (Neg) Influenza Type B (PCR) (Neg) 10/30/18 10/30/18 10/30/18 Range/Units 14:01 14:40 19:49 WBC (4.8-10.8) K/uL RBC (4.7-6.1) M/uL Hgb (14.0-18.0) g/dL Hct (42-52) % MCV (80-100) fL MCH (25-34) pg MCHC (32-36) g/dL RDW Std Deviation (36.4-46.3) fL RDW Coeff of Perri (11.5-14.5) % Plt Count (130-400) K/uL MPV (7.4-10.4) fL Immature Gran % (Auto) % Neut % (Auto) % Lymph % (Auto) % [place] % (Auto) % Eos % (Auto) % Baso % (Auto) % Immature Gran # (Auto) (0.00-0.02) K/uL Neut # (Auto) (1.4-6.5) K/uL Lymph # (Auto) (1.2-3.4) K/uL [place] # (Auto) (0.11-0.59) K/uL Eos # (Auto) (0-0.5) K/uL Baso # (Auto) (0-0.2) K/uL PT (9.0-12.0) Seconds INR (0.9-1.1) Sodium (136-145) mmol/L Potassium (3.5-5.1) mmol/L Chloride (98-107) mmol/L Carbon Dioxide (21-32) mmol/L Anion Gap (3-11) BUN (7-18) mg/dl Creatinine (0.6-1.4) mg/dl Est Cr Clr Drug Dosing ml/min Est GFR ( Amer) Est GFR (Non-Af Amer) BUN/Creatinine Ratio (10-20) Glucose (70-99) mg/dl POC Lactic Acid Sd 1.44 (0.90-1.70) mmol/L Calcium (8.5-10.1) mg/dl Phosphorus (2.5-4.9) mg/dl Magnesium (1.8-2.4) mg/dl Total Bilirubin (0.2-1) mg/dl AST (15-37) U/L ALT (12-78) U/L Alkaline Phosphatase (45-117) U/L Troponin I (0-0.045) ng/ml NT-Pro-B Natriuret Pep (0-1800) pg/ml Total Protein (6.4-8.2) gm/dl Albumin (3.4-5.0) gm/dl Globulin (2.5-4.0) gm/dl Albumin/Globulin Ratio (0.9-2) Lipase (73-393) U/L Procalcitonin (0-0.5) ng/ml TSH (0.300-4.500) uIu/ml Urine Color Yellow Urine Appearance Clear (Clear) Urine pH 6.0 (4.5-7.5) Ur Specific [place] > 1.045 H (1.000-1.030) Urine Protein Negative (Negative) Urine Glucose (UA) Negative (Negative) Urine Ketones Negative (Negative) Urine Blood Negative (Negative) Urine Nitrite Negative (Negative) Urine Bilirubin Negative (Negative) Urine Urobilinogen Negative (Negative) Ur Leukocyte Esterase Negative (Negative) Influenza Type A (PCR) Neg for Influ A (Neg) Influenza Type B (PCR) Neg for Influ B (Neg) 10/30/18 10/30/18 10/31/18 Range/Units 21:25 21:25 06:07 WBC 2.74 L (4.8-10.8) K/uL RBC 3.21 L (4.7-6.1) M/uL Hgb 9.8 L (14.0-18.0) g/dL Hct 29.9 L (42-52) % MCV 93.1 (80-100) fL MCH 30.5 (25-34) pg MCHC 32.8 (32-36) g/dL RDW Std Deviation 48.4 H (36.4-46.3) fL RDW Coeff of Perri 14.1 (11.5-14.5) % Plt Count 162 (130-400) K/uL MPV 9.8 (7.4-10.4) fL Immature Gran % (Auto) 0.7 % Neut % (Auto) 64.9 % Lymph % (Auto) 23.4 % [place] % (Auto) 10.6 % Eos % (Auto) 0.0 % Baso % (Auto) 0.4 % Immature Gran # (Auto) 0.02 (0.00-0.02) K/uL Neut # (Auto) 1.78 (1.4-6.5) K/uL Lymph # (Auto) 0.64 L (1.2-3.4) K/uL [place] # (Auto) 0.29 (0.11-0.59) K/uL Eos # (Auto) 0.00 (0-0.5) K/uL Baso # (Auto) 0.01 (0-0.2) K/uL PT (9.0-12.0) Seconds INR (0.9-1.1) Sodium (136-145) mmol/L Potassium (3.5-5.1) mmol/L Chloride (98-107) mmol/L Carbon Dioxide (21-32) mmol/L Anion Gap (3-11) BUN (7-18) mg/dl Creatinine (0.6-1.4) mg/dl Est Cr Clr Drug Dosing ml/min Est GFR ( Amer) Est GFR (Non-Af Amer) BUN/Creatinine Ratio (10-20) Glucose (70-99) mg/dl POC Lactic Acid Sd (0.90-1.70) mmol/L Calcium (8.5-10.1) mg/dl Phosphorus 3.3 (2.5-4.9) mg/dl Magnesium (1.8-2.4) mg/dl Total Bilirubin (0.2-1) mg/dl AST (15-37) U/L ALT (12-78) U/L Alkaline Phosphatase (45-117) U/L Troponin I 0.114 H* (0-0.045) ng/ml NT-Pro-B Natriuret Pep (0-1800) pg/ml Total Protein (6.4-8.2) gm/dl Albumin (3.4-5.0) gm/dl Globulin (2.5-4.0) gm/dl Albumin/Globulin Ratio (0.9-2) Lipase (73-393) U/L Procalcitonin 0.07 (0-0.5) ng/ml TSH (0.300-4.500) uIu/ml Urine Color Urine Appearance (Clear) Urine pH (4.5-7.5) Ur Specific [place] (1.000-1.030) Urine Protein (Negative) Urine Glucose (UA) (Negative) Urine Ketones (Negative) Urine Blood (Negative) Urine Nitrite (Negative) Urine Bilirubin (Negative) Urine Urobilinogen (Negative) Ur Leukocyte Esterase (Negative) Influenza Type A (PCR) (Neg) Influenza Type B (PCR) (Neg) 10/31/18 Range/Units 06:07 WBC (4.8-10.8) K/uL RBC (4.7-6.1) M/uL Hgb (14.0-18.0) g/dL Hct (42-52) % MCV (80-100) fL MCH (25-34) pg MCHC (32-36) g/dL RDW Std Deviation (36.4-46.3) fL RDW Coeff of Perri (11.5-14.5) % Plt Count (130-400) K/uL MPV (7.4-10.4) fL Immature Gran % (Auto) % Neut % (Auto) % Lymph % (Auto) % [place] % (Auto) % Eos % (Auto) % Baso % (Auto) % Immature Gran # (Auto) (0.00-0.02) K/uL Neut # (Auto) (1.4-6.5) K/uL Lymph # (Auto) (1.2-3.4) K/uL [place] # (Auto) (0.11-0.59) K/uL Eos # (Auto) (0-0.5) K/uL Baso # (Auto) (0-0.2) K/uL PT (9.0-12.0) Seconds INR (0.9-1.1) Sodium 133 L (136-145) mmol/L Potassium 3.6 (3.5-5.1) mmol/L Chloride 103 (98-107) mmol/L Carbon Dioxide 25 (21-32) mmol/L Anion Gap 5.0 (3-11) BUN 23 H (7-18) mg/dl Creatinine 1.12 (0.6-1.4) mg/dl Est Cr Clr Drug Dosing 42.9 ml/min Est GFR ( Amer) 67.1 Est GFR (Non-Af Amer) 57.9 BUN/Creatinine Ratio 20.8 H (10-20) Glucose 83 (70-99) mg/dl POC Lactic Acid Sd (0.90-1.70) mmol/L Calcium 8.1 L (8.5-10.1) mg/dl Phosphorus (2.5-4.9) mg/dl Magnesium (1.8-2.4) mg/dl Total Bilirubin (0.2-1) mg/dl AST (15-37) U/L ALT (12-78) U/L Alkaline Phosphatase (45-117) U/L Troponin I 0.119 H* (0-0.045) ng/ml NT-Pro-B Natriuret Pep (0-1800) pg/ml Total Protein (6.4-8.2) gm/dl Albumin (3.4-5.0) gm/dl Globulin (2.5-4.0) gm/dl Albumin/Globulin Ratio (0.9-2) Lipase (73-393) U/L Procalcitonin (0-0.5) ng/ml TSH (0.300-4.500) uIu/ml Urine Color Urine Appearance (Clear) Urine pH (4.5-7.5) Ur Specific [place] (1.000-1.030) Urine Protein (Negative) Urine Glucose (UA) (Negative) Urine Ketones (Negative) Urine Blood (Negative) Urine Nitrite (Negative) Urine Bilirubin (Negative) Urine Urobilinogen (Negative) Ur Leukocyte Esterase (Negative) Influenza Type A (PCR) (Neg) Influenza Type B (PCR) (Neg) Imaging Data Radiologist's Impression: Radiology results as stated below per my review and the radiologist's interpretation: CT SCAN OF THE BRAIN WITHOUT IV CONTRAST CLINICAL HISTORY: Change in mental status. COMPARISON STUDY: CT of the brain dated 02/14/2017. TECHNIQUE: Unenhanced axial CT scan of the brain is performed from the vertex to the skull base. A dose lowering technique was utilized adhering to the principles of ALARA. CT DOSE: 537.48 mGy.cm FINDINGS: Brain parenchyma: There are age-related involutional changes noting moderate to advanced confluent subcortical and periventricular microangiopathic change. There is no hemorrhage, mass effect, or evidence of acute territorial ischemia by CT criteria. Muñoz-white matter differentiation is preserved. No extra-axial fluid collection is seen. Ventricles, sulci, cisterns: Prominent secondary to involutional change. Intracranial vasculature: There is atherosclerotic calcification of the cavernous carotid and vertebral arteries. Calvarium: Unremarkable. Sinuses and mastoids: Moderate mucosal thickening is noted within the frontal and ethmoid sinuses. The mastoid air cells are well pneumatized. Orbits: The bony orbits are grossly intact. There are bilateral ocular lens implants. IMPRESSION: 1. Senescent changes as above with no hemorrhage, mass effect, or evidence of acute territorial ischemia by CT criteria. 2. Paranasal sinus disease as above. Electronically signed by: Lisandro Palomino M.D. 10/30/2018 2:30 PM TWO VIEW CHEST CLINICAL HISTORY: Dyspnea. FINDINGS: PA and lateral chest radiographs are compared to study dated 09/15/2018 and correlated with chest CT dated 02/14/2017. The patient is status post midline sternotomy and there is evidence of previous cardiac valve surgery. The heart is mildly enlarged and there is atherosclerotic calcification of the thoracic aorta. The pulmonary vasculature is noncongested. Enlargement of the central pulmonary arteries suggests pulmonary artery hypertension. Emphysema and chronic interstitial thickening are similar to previous. There is chronic elevation of the left hemidiaphragm with bibasilar scarring/atelectasis. There is no evidence of superimposed airspace consolidation or pleural effusion. There is no pneumo thorax. The skeletal structures are osteopenic. Degenerative change is noted in the shoulders and thoracic spine. The bony thorax appears intact. IMPRESSION: Cardiomegaly and emphysema with no acute cardiopulmonary abnormality. Electronically signed by: Lisandro Palomino M.D. 10/30/2018 2:[address] SCAN OF THE CHEST, ABDOMEN, AND PELVIS WITH IV CONTRAST CLINICAL HISTORY: Cough. Nausea and vomiting. COMPARISON STUDY: Chest CT dated 02/14/2017. Chest x-ray dated 10/30/2018. Abdominal CT dated 05/23/2013. Nuclear bone scan dated 07/30/2016. TECHNIQUE: Following the IV administration of 94 of Optiray 320, CT scan of the chest, abdomen, and pelvis was performed from the thoracic inlet to the proximal femora. Images are reviewed in the axial, sagittal, and coronal planes. IV contrast was administered without complication. A dose lowering technique was utilized adhering to the principles of ALARA. CT DOSE: 489.63 mGy.cm FINDINGS: CHEST: Thyroid: Imaged portions of the thyroid gland are normal in size and attenuation. Thoracic aorta: There is atherosclerotic calcification of the thoracic aorta, which is normal in caliber and demonstrates standard 3-vessel arch anatomy. No dissection is seen. Pulmonary vasculature: The main pulmonary arteries are mildly dilated suggesting pulmonary artery hypertension. There are no filling defects identified in the central pulmonary vessels to indicate pulmonary embolus. Note that this examination was not protocoled for evaluation of the pulmonary arteries. Heart: The patient is status post midline sternotomy. Postoperative change is noted at the aortic valve. The heart is enlarged and without pericardial effusion. The coronary arteries are densely calcified. Lungs and pleural spaces: Emphysematous change is again noted. No airspace consolidation or pleural effusion is identified. There is chronic elevation of left hemidiaphragm with bibasilar scarring/atelectasis. A 4 mm pleural-based nodule in the left lower lobe along the major fissure seen on image #145 is unchanged from 2017 and of doubtful significance. The trachea and central airways are clear. Mediastinum: There are numerous subcentimeter mediastinal lymph nodes. These are not pathologically enlarged by size criteria. Yamini: Prominent hilar nodes measure up to 10 mm in short axis. Axillae: There is no axillary lymphadenopathy. Soft tissues: Gynecomastia is noted. A 16 mm sebaceous cyst is present in the right upper back on image #62. Bony thorax: The skeletal structures are osteopenic. There are numerous healed right-sided rib fractures. There is chronic posttraumatic deformity of the right clavicle. Degenerative change and scoliosis are noted in the thoracic spine. Advanced arthritic change is seen in the shoulders. Numerous joint bodies and bursal fluid are identified. No lytic or blastic lesions are identified. ABDOMEN AND PELVIS: Liver: The contrast-enhanced liver is normal in size, contour, and attenuation. There is no intrahepatic or ductal dilatation. The hepatic veins and portal veins are patent. Gallbladder: Unremarkable. Spleen: Normal in size and attenuation. Pancreas: Mildly atrophic and grossly unremarkable. Adrenal glands: Unremarkable. Kidneys: The contrast enhanced kidneys demonstrate cortical atrophy and are without hydronephrosis. The kidneys enhance symmetrically. There are 2 left renal cyst which measure up to 3.4 cm. Abdominal vasculature: The abdominal aorta is normal in course and caliber noting advanced atherosclerotic calcification. Bowel: Fundoplication change is questioned at the gastric fundus. There is rectosigmoid fecal retention. No bowel obstruction is seen. Mild wall thickening and pericolic stranding suggested involving the left colon. The appendix is not identified and reported surgically absent. Peritoneum: There is no intraperitoneal free air or abdominal ascites. Lymphadenopathy: None. Pelvic viscera: The prostate gland is diminutive and heterogeneous. The bladder wall is thickened and trabeculated indicating chronic outlet obstruction. There is a small fat-containing left inguinal hernia. Skeletal structures: The skeletal structures are osteopenic. There is moderate to advanced lumbosacral spondylosis and scoliosis. Postlaminectomy change is noted throughout the lumbar spine. No lytic or blastic lesions are seen. IMPRESSION: 1. Cardiomegaly, emphysema, and chronic pulmonary parenchymal changes as above. 2. There is no airspace consolidation or pleural effusion. 3. Question a mild nonspecific colitis of the left colon. Clinical correlation will be required. 4. There is rectosigmoid fecal retention. No bowel obstruction is seen. 5. Additional findings as above. Electronically signed by: Lisandro Palomino M.D. 10/30/2018 4:59 PM ECG Data Attestation: I personally reviewed and interpreted this ECG as follows: Indication: vomiting Rate (beats per minute): 59 Rhythm: sinus bradycardia Findings: + other (normal axis, normal interval) and + 1st degree AV block; no PAC, no PVC, no ST depression, no ST elevation, no acute ischemic change and no ectopy Blood Pressure Blood Pressure Findings: Low blood pressure MDM Narrative Patient here nontoxic appearing, however appearing uncomfortable initially given nausea vomiting and weakness. Patient was most concerned about pneumonia as he has had similar presentations before in the setting of pneumonia. On initial x- rays are unremarkable given his concern and risk, patient sent for CT. Given nausea vomiting he was also sent for CT abdomen pelvis. This revealed a nonspe cific colitis. Patient has not had any diarrhea, it is unclear if this is the reason for the nausea vomiting as well as fevers and chills today. With no evidence of pneumonia on the chest CT. Patient was found to have an elevated troponin, higher than records noted by family at the [facility] recently. Likely this is nonspecific and chronic and the patient, given his significant cardiac history, it is unclear if these are trending up or down or related to his current presentation. Case discussed with hospitalist for additional evaluation and management as well as additional lab testing, hydration, and monitoring. Vision and family were in agreement with this plan and were aware o f all results at bedside. No evidence of bacteremia/sepsis. I do not suspect acute failure complication related to his recent TAVR. Impression & Plan Altered mental status, Colitis, Vomiting, Fever Discharge Plan Visit Data *Final* Discharge Date/Time: 10/30/18 20:38 Chief Complaint: Vomiting Stated Complaint: VOMITING ED Provider: Raquel Merida Discharge Problem: Altered mental status, Colitis, Vomiting, Fever Patient Disposition: Admitted As Inpatient Condition: Fair Discharge Instructions Interventions: ED Discharge Assessment Last Done: 10/30/18 20:38 Discharge Problem: Altered mental status Qualifiers: Altered mental status type: unspecified Qualified Code(s): R41.82 - Altered mental status, unspecified Vomiting Qualifiers: Vomiting type: unspecified Vomiting Intractability: unspecified Nausea presen ce: unspecified Qualified Code(s): R11.10 - Vomiting, unspecified Fever Qualifiers: Fever type: unspecified Qualified Code(s): R50.9 - Fever, unspecified The scribe's documentation has been prepared under my direction and personally reviewed by me in its entirety. I confirm that the note above accurately reflects all work, treatment, procedures, and medical decision making performed by me.
[2018-10-31] MEDS: ENOXAPARIN INJ 40 MG/0.4 ML SYR SQ SCH (21:20)
[2018-10-31] MEDS: cefTRIAXone SODIUM 1,000 MG in DEXTROSE 5% 50 ML IV SCH (21:22)
[2018-11-01] MEDS: metroNIDAZOLE 500 MG/100 ML BAG IV SCH ×2 (01:57→10:41)
[2018-11-01] MEDS ORDERED: PERFLUTREN LIPID MICROSPHERE (DEFINITY) IV ONE (07:09)
[2018-11-01 07:45] LABS: Basophils # (auto) 0.01 K/uL (0-0.2); Basophils % (auto) 0.2 %; Eosinophils # (auto) 0.09 K/uL (0-0.5); Hematocrit (blood only) 31.5 % (42-52); Hemoglobin 10.7 g/dL (14.0-18.0); Immature Granulocytes # (auto) 0.01 K/uL (0.00-0.02); Immature Granulocytes % (auto) 0.2 %; Lymphocytes # (auto) 1.09 K/uL (1.2-3.4); Lymphocytes % (auto) 24.7 %; Mean Corpuscular Volume 90.5 fL (80-100); Mean Platelet Volume 9.8 fL (7.4-10.4); Monocytes # (auto) 0.64 K/uL (0.11-0.59); Monocytes % (auto) 14.5 %; Neutrophils # (auto) 2.58 K/uL (1.4-6.5); Neutrophils % (auto) 58.4 %; Platelet Count 172 K/uL (130-400); RDW Coefficient of Variation 13.8 % (11.5-14.5); RDW Standard Deviation 45.8 fL (36.4-46.3); Red Blood Count 3.48 M/uL (4.7-6.1); White Blood Count 4.42 K/uL (4.8-10.8)
[2018-11-01] MEDS: BICALUTAMIDE 50 MG TAB PO SCH (07:52)
[2018-11-01] MEDS: FLUTICASONE/SALMETEROL 250/50 (ADVAIR) 14 PUFF/1 INHALER INH SCH (07:52)
[2018-11-01] MEDS: TRIAMTERENE/HCTZ 37.5/25MG CAP PO SCH (07:52)
[2018-11-01] MEDS: METOPROLOL SUCC 25MG EXT REL TAB PO SCH (07:53)
[2018-11-01] MEDS: FERROUS SULFATE 325 MG TAB PO SCH (07:53)
[2018-11-01] MEDS: ASPIRIN 81 MG ECTAB PO SCH (07:53)
[2018-11-01] MEDS: ATORVASTATIN 40 MG TAB PO SCH (07:53)
[2018-11-01] MEDS: CALCIUM CARBONATE 1250MG TAB PO SCH (07:53)
[2018-11-01] MEDS: DOXYCYCLINE HYCLATE 100 MG in DEXTROSE 5% 100 ML IV SCH (07:56)
[2018-11-01 08:03] LABS: BUN Creatinine Ratio 16.4 (10-20); Creatinine Clr Calc Pharmacy 45.8 ml/min; Est GFR (African American) 72.6; Est GFR (Non-African American) 62.6; Magnesium 1.9 mg/dl (1.8-2.4); Potassium 3.8 mmol/L (3.5-5.1)
[2018-11-01 08:08] LABS: Ferritin 143.5 ng/ml (8-388)
[2018-11-01 08:28] LABS: Folate (Folic Acid) 22.63 ng/ml (>5.38)
--- NOTE | 2018-11-01 13:21 | Discharge Summary ---
Date of Service November 01, 2018 Admission HPI Per Admitting Provider Mr. Cartwright is a pleasant 88yo male with history of CAD s/p CABG in 2010, s/p TAVR performed at [facility] 2 months ago complicated by post-operative PNA. Patient has been doing well overall since the surgery. He has had diffuse weakness and fatigue which was present before the TAVR - has mildly improved since having the TAVR. He has yet to start cardiac rehabilitation. Patient began feeling "ill" last night. Fever of 100.3, chills, worsening weakness and fatigue. He developed nausea and one episode of non-bloody/non-bilious vomiting. His family states that he was confused and less responsive than baseline. Patient also reports worsening shortness of breath and wheezing. He denies CP/palpitations/orthopnea/edema or weight gain. Denies abdominal pain, distention or bloating. No further nausea or vomiting. No constipation but has intermittent diarrhea. Patient and family report that this is exactly how he typically presents when he has PNA. Per family patient's BNP level during pre-operative assessment was 740, repeat immediately before surgery was 537. Karely reports patient's troponin on discharge from [facility] was 0.83. When he returned the day after discharge for his PNA his troponin was 0.89. Family also reports that patient has a chronic issue with his left colon. During a prior colonoscopy they were unable to pass the scope due to a "kink" in his intestines. Er Course: Flagyl 500mg, NSS x 1 L Principal Diagnosis Acute on chronic sinusitis, acute metabolic encephalopathy Discharge Exam Constitutional WD/WN, vitals as above Eyes PERRL, conjunctivae normal, anicteric sclerae ENMT external ear and nose normal, oropharynx normal Neck trachea midline, no thyromegaly Respiratory normal respiratory effort, lungs clear to auscultation Cardiovascular Rate/Rhythm: regular rate and regular rhythm Heart Sounds: + murmur (2/6 RUSB) Gastrointestinal (Abdomen) normal bowel sounds, soft, nontender, no hepatosplenomegaly Musculoskeletal Extremities: extremities normal to inspection; no cyanosis and no clubbing Skin no rashes, warm and dry Neurologic moves all extremities and awake; no focal motor deficits Psychiatric A+Ox3, euthymic affect Discharge Data Allergies Allergy/AdvReac Type Severity Reaction Status Date / Time No Known Allergies Allergy Unknown Verified 10/30/18 14:14 Consultations None Ordered Studies 10/30/18 13:35 CT head/brain wo con Stat 10/30/18 15:41 CT abd pelvis IV con only Stat CT chest w con Stat 10/31/18 15:18 CT sinus wo con Routine Hospital Course (1) Altered mental status: Patient is an 88yo male with history of CAD s/p CABG, recent TAVR performed at [facility] 2 months ago presenting with subjective fevers/chills/confusion/nausea. Also with SOB/weakness and fatigue. Patient leukopenic here with WBC of 3.81, lymphocytopenia noted on differential. ?viral illness. No overt infectious source - UA negative, CT chest without PNA. CT abdomen with mention of non-specific colitis, patient denies GI complaints or abdominal pain and states that he has some chronic issues of his left colon. Family and patient are convinced that he has PNA and state that this is very typically how he presents. Otherwise, patient with mild hyponatremia that is near his baseline. Electrolytes otherwise WNL, not on sedating medications or pain meds, CT head with chronic senescent changes, TSH WNL. Exam is largely unremarkable. Per review of outpatient records, patient experiences periodic fevers at night which were present prior to surgery. Acute metabolic encephalopathy-delirium secondary to febrile illness With fever at home most likely of acute on chronic sinusitis. CT does show nonspecific left-sided colitis but, he has no signs of colitis on exam or by history. He does however have chronic sinusitis with recurrent low grade fevers and delirium over the last 6 months up to 10 times as per . WBC low which points more towards viral syndrome-this is improved almost back to normal today. PCT negative Blood cultures x 2 sets NGTD Repeat CXR PA and lateral without infiltrate-ruled out PNA with negative chest x-ray x2 -Was initially treated as below for colitis with Rocephin and Flagyl, as well as azithromycin for presumed pneumonia which has now been ruled out - CT sinuses shows moderate to severe pansinusitis with occlusion of the bilateral ostiomeatal complexes-most likely has recurrent acute on chronic sinusitis-treated with Rocephin and doxycycline here in case of MRSA infection- we will send home with Omnicef and doxycycline for 10-day course-needs close follow-up with ear nose and throat physician (2) Colitis: As noted on CT but again without clinical signs or symptoms of this otherwise. Patient with no abdominal complaints. He received Flagyl in ER -Continue to monitor -Stool culture sent in ER and no growth to date No need for further treatment of this -Given advanced age and comorbidities, would not likely recommend colonoscopy as an outpatient but could consider this However he has been told he has a very tight stricture in the left colon-perhaps constipation is causing this colitis-mild stercoral colitis (3) Elevated troponin: Patient with mild elevation in troponin of 0.118 x 3. He is 2 months out from his TAVR. Denies CP/palpitations. Appear euvolemic on exam. Has elevation of BNP but no other evidence of CHF, NOT in acute CHF -Telemetry monitoring unremarkable thus far Likely demand myocardial ischemia given fever and illness Echocardiogram here with normal LV function -Continue ASA, Atorvastatin, Metoprolol (4) S/P TAVR (transcatheter aortic valve replacement): S/p TAVR for severe calcific aortic stenosis. Patient was admitted to [facility] from 08/30 - 09/01/18. Successful procedure. Post-operative Hg was 9.6 and echo with EF of 60%. Complicated by post-operative PNA for which he completed a course of antibiotics (finished on 09/12/18). He had a followup CXR on 09/15/18 which was negative. Was told at f/u appt last week that his valve is functioning beautifully (5) Hx of CABG: Patient with CAD s/p CABG x 3 [place] [facility]. He had MARTINEZ to LAD, SVG to LCx marginal and right PDA. Patient presently with no CP, no EKG changes consistent with ischemia. Mild elevation in troponin of 0.118 -Continue ASA, Atorvastatin, Metoprolol (6) Anemia: Normochromic, normocytic anemia with Hg=11.2 and Hct=33.4.with mild drop in hgb to 9.8 after admission was likely hemodilutional No active bleeding. Per record review, Hgb on discharge from [facility] was 9.6. He has been taking Fe supplementation -Fe studies here consistent with anemia of chronic disease B12. folate, both normal Hemoccult stool collected prior to discharge -Follow with PCP (7) Prostate cancer: Patient with prostate cancer. He follows with Urology, last seen on 05 October 2018. He is takiing Casodex 50mg po every other day. He is to followup with Urology re: discussion of possible radiation therapy now that his valve has been replaced. -Continue Casodex every other day -Urology followup outpatient as planned (8) Sinus drainage: With acute on chronic pansinusitis with bilateral occlusion of the ostial meatal complexes -With black drainage daily and congestion x 5 years, no facial pain on exam with recurrent fevers as above -Antibiotic plan as above -needs ENT outpt referral and this was arranged prior to discharge (9) Fever: as above (10) Vomiting: related to fever? he is prone to vomiting every time he gets a fever now resolved tolerating regular diet (11) HTN (hypertension), benign: controlled -continue dyazide daily (12) DVT prophylaxis: Lovenox was given Dispo- PT/OT evals recommend return to home he is doing very well Discharged home today with close follow-up outpatient Total Time Total Time Spent Total Time Spent (In Minutes): Greater than 30 minutes Total Time Includes: Examination of the Patient, Discharge Planning and Medication Reconciliation Discharge Plan Discharge Items Patient Disposition: Home - Self-Care Reason For Visit: VOMITING Discharge Diagnosis: Acute sinusitis Condition: Good Discharge Goals: Decrease discomfort, Diagnostic testing, Improve disease control, Learn about illness and Therapeutic intervention Activity: Resume your previous activity Lifting: Gradually increase as tolerated Bathing: No limitations Exercise/Sports: Gradually increase as tolerated Non-emergency contact: Primary Care Provider Call non-emergency contact if: you have any medication questions, your symptoms worsen, your pain is not controlled, your pain is worsening, your pain is unusual for you, your pain is concerning for you and your temperature is above 100.5 Follow-up/Referrals: Bhaskar Gaffney MD [Primary Care Provider] - 11/08/18 11:00 am (Please, follow up at Dr. Gaffney's office with his assistant professor of biochemistry, Pratibha Montana PA-C, on ThursdayNovember 08 at 11:00 am. *If you need to change this appointment, call their office at [phone].) Mateusz Hameed MD, [facility] [Physician] - 11/09/18 2:30 pm (Please, follow up at [facility] Office with Dr. Hameed on ThursdayNovember 09 at 2:45 pm (arrive 2:30 pm). *This office is located at [address] [facility] in [facility]). If you have any questions, call the office at [phone].) Diet: Heart Healthy Addtl Provider Instructions: You were admitted with a febrile illness that caused you to have some delirium. You have sinusitis and were started on antibiotics to cover for this. Please continue the oral antibiotics as prescribed. The Nurse from the ENT doctor's office (Dr. Mateusz Hameed) should be contacting you regarding getting an appointment to follow up on this. Please also follow up with your PCP as scheduled for you. Prescriptions: New cefdinir 300 mg capsule 300 mg PO BID 10 Days Qty: 20 RF: 0 doxycycline hyclate 100 mg tablet 100 mg PO BID 10 Days Qty: 20 RF: 0 Continued Albuterol Rescue PO DIRECTED RF: 0 multivitamin Tablet 1 tab PO DAILY RF: 0 bicalutamide 50 mg tablet 50 mg PO DAILY RF: 0 fluticasone propion-salmeterol [Advair Diskus] 250-50 mcg/dose blister with device 1 puff inhalation DIRECTED RF: 0 atorvastatin 80 mg tablet 40 mg PO DAILY RF: 0 aspirin 81 mg Tablet,Delayed Release (Dr/Ec) 81 mg PO DAILY RF: 0 triamterene-hydrochlorothiazid 37.5-25 mg Capsule 1 cap PO DAILY RF: 0 calcium carbonate 600 mg calcium (1,500 mg) Tablet 600 mg PO DAILY RF: 0 ferrous sulfate 325 mg (65 mg iron) Tablet 325 mg PO QAM RF: 0 metoprolol succinate [Toprol XL] 25 mg tablet extended release 24 hr 25 mg PO DAILY RF: 0 Ocuvite Adult 50 Plus 250-5-1 mg Capsule 1 cap PO DAILY RF: 0 melatonin 5 mg Tablet 5 mg PO DAILY RF: 0 Discontinued amoxicillin 500 mg Tablet 500 mg PO DIRECTED PRN (Reason: Unknown) RF: 0 Stand-Alone Forms: [facility] Discharge Orders: Discharge Order (Routine); Ordered 11/01/18 Ordered By: Caitlin Mayfield Admission Data Admit Date/Time: 10/30/18 19:55 Attending Provider: Caitlin Mayfield Admit Provider: Ana Maria Richards Primary Care Provider: Bhaskar Gaffney Other Providers: Ana Maria Richards Service: Telemetry Medical Other Interventions: Discharge Summary Assessment (RN) Last Done: 11/01/18 13:33 DC Date/Time DO NOT enter until pt leaves facility: 11/01/18 14:34
== END 2018-11-01 14:34 | disposition home or self-care (01) | DRG 152 ==
LOC: ED 12:58 → 2W 19:55 → SUATTDRO 19:55 → 2W 20:38